=== PATIENT | female | born 1935 | race Caucasian/White ===

== ENCOUNTER 2017-03-19 03:12 | Inpatient (IN) | payer MEDICARE ==
[2017-03-19] VITALS (41 sets, daily range): BP systolic 70–162; BP diastolic 29–87
[~2017-03-19] VITALS: Ht 167.6 cm; Wt 97.3 kg
[~2017-03-19 03:12] MED LIST: ACDPT PO; APIX5TAB2 PO; ASP81CT PO; ASP81TEC PO; ATR20T PO; ATRV10T PO; CALC-656 PO; CALC1TAB94 PO; CLOP75TA PO; DRON400T2 PO; FENO135C PO; FLC1T PO; FNT25TD TD; LEVE500T PO; LEVO750T24 PO; LVT.05T PO; MAGN400T29 PO; METO-272 PO; METO100T5 PO; METO25TA PO; METO50TA7 PO; MTP25TSR PO; Magnesium Oxide PO; NAPR1TAB21 PO; NF-LOVAZAC PO; OMEG1CAP24 PO; OXYB10TA PO; PNT40TEC PO; SOLI5TAB4 PO; Sertraline Hcl PO; Sotalol Hcl PO; WARF6TAB PO; WRF10T PO; WRF3T PO
[2017-03-19] MEDS ORDERED: D5W IV SOLUTION (EXCEL) 250 ML IV ONE ×2 (04:32→05:04)
[2017-03-19] MEDS ORDERED: NOREPINEPHRINE 4 MG/4 ML (LEVOPHED) AMP IV ONE ×2 (04:33→05:04)
--- OUTSIDE RECORDS SUMMARY | 2017-03-19 04:40 | XMS REPORT | Continuity of Care Document ---
Author Author [facility] Organization [facility] Address Unknown Phone Unavailable Allergies Active Description Code Type Severity Reaction Onset Reported/Identified Relationship to Patient Clinical Status Yes bupropion [id number] Drug Allergy Unknown N/A 05/20/2011 Yes codeine [id number] Drug Allergy Unknown N/A 05/20/2011 Yes epinephrine [id number] Drug Allergy Unknown N/A 05/20/2011 Yes fexofenadine [id number] Drug Allergy Unknown N/A 05/20/2011 Yes gemfibrozil [id number] Drug Allergy Unknown N/A 05/20/2011 Yes meperidine HCl [id number] Drug Allergy Unknown N/A 05/20/2011 Yes niacin [id number] Drug Allergy Unknown N/A 05/20/2011 Yes ondansetron [id number] Drug Allergy Unknown N/A 05/20/2011 Yes Penicillins [id number] Drug Allergy Unknown N/A 05/20/2011 Yes propoxyphene [id number] Drug Allergy Unknown N/A 05/20/2011 Yes propoxyphene napsylate [id number] Drug Allergy Unknown N/A 05/20/2011 Yes tetracycline [id number] Drug Allergy Unknown N/A 05/20/2011 Medications There is no data. Problems Date Dx Coded Attending Type Code Diagnosis Diagnosed By 06/08/2012 Ot 272.4 HYPERLIPIDEMIA NEC/NOS 06/08/2012 Ot 305.1 TOBACCO USE DISORDER 06/08/2012 Ot 401.9 HYPERTENSION NOS 06/08/2012 Ot 414.01 CORONARY ATHEROSCLEROSIS OF LUMMI CORON 06/08/2012 Ot 427.31 ATRIAL FIBRILLATION 06/08/2012 Ot 427.81 SINOATRIAL NODE DYSFUNCT 06/08/2012 Ot 433.10 CAROTID ARTERY OCCLUSION W O CEREBRAL IN 06/08/2012 Ot 794.30 ABN CARDIOVASC STUDY NOS 06/08/2012 Ot V45.01 CARDIAC PACEMAKER IN SITU 06/08/2012 Ot V58.61 ANTICOAGULANTS,LT,CURRENT USE 06/08/2012 Ot V58.69 OTH MED,LT, CURRENT USE 06/20/2012 Ot 272.4 HYPERLIPIDEMIA NEC/NOS 06/20/2012 Ot 401.9 HYPERTENSION NOS 06/20/2012 Ot 427.31 ATRIAL FIBRILLATION 06/20/2012 Ot 427.81 SINOATRIAL NODE DYSFUNCT 06/20/2012 Ot 440.20 ATHEROSCLEROSIS LUMMI ARTERIES EXTREMIT 06/20/2012 Ot 996.1 MALFUNC VASC DEVICE/MANUEL 06/20/2012 Ot V45.01 CARDIAC PACEMAKER IN SITU 07/12/2012 Ot 244.9 HYPOTHYROIDISM NOS 07/12/2012 Ot 272.4 HYPERLIPIDEMIA NEC/NOS 07/12/2012 Ot 285.9 ANEMIA NOS 07/12/2012 Ot 305.1 TOBACCO USE DISORDER 07/12/2012 Ot 401.9 HYPERTENSION NOS 07/12/2012 Ot 414.01 CORONARY ATHEROSCLEROSIS OF LUMMI CORON 07/12/2012 Ot 440.20 ATHEROSCLEROSIS LUMMI ARTERIES EXTREMIT 07/12/2012 Ot 998.59 OTH POSTOPER INFECTION 07/12/2012 Ot 998.83 NON-HEALING SURG WOUND 07/12/2012 Ot E849.7 ACCID IN RESIDENT INSTIT 07/12/2012 Ot E878.8 ABN REACT- SURG PROC NEC 07/12/2012 Ot V45.01 CARDIAC PACEMAKER IN SITU 07/12/2012 Ot V58.61 ANTICOAGULANTS,LT,CURRENT USE 02/19/2014 SARIKA CHERY, GHISLAINE E Ot 298.9 02/19/2014 SARIKA CHERY, GHISLAINE E Ot 530.81 02/19/2014 SARIKA CHERY, GHISLAINE E Ot 553.3 02/19/2014 SARIKA CHERY, GHISLAINE E Ot 780.79 02/19/2014 SARIKA CHERY, GHISLAINE E Ot V45.01 02/19/2014 GHISLAINE BAUM MD E Ot V45.82 02/19/2014 SARIKA CHERY, GHISLAINE E Ot V57.89 02/23/2014 SARIKA CHERY, GHISLAINE E Ot 244.9 02/23/2014 GHISLAINE BAUM MD E Ot 272.4 02/23/2014 GHISLAINE BAUM MD E Ot 293.9 02/23/2014 SARIKA CHERY, GHISLAINE E Ot 374.30 02/23/2014 SARIKA CHERY, GHISLAINE E Ot 378.51 02/23/2014 SHELLY BAUM MDIC E Ot 401.9 02/23/2014 SARIKA CHERY, GHISLAINE E Ot 414.01 02/23/2014 SARIKA CHERY, GHISLAINE E Ot 427.31 02/23/2014 SARIKA CHERY, GHISLAINE E Ot 438.89 02/23/2014 SARIKA CHERY, GHISLAINE E Ot 443.9 02/23/2014 SARIKA CHERY, GHISLAINE E Ot 530.81 02/23/2014 SARIKA CHERY, GHISLAINE E Ot 553.3 02/23/2014 SARIKA CHERY, GHISLAINE E Ot 780.79 02/23/2014 SARIKA CHERY, GHISLAINE E Ot V12.51 02/23/2014 SARIKA CHERY, GHISLAINE E Ot V15.82 02/23/2014 SARIKA CHERY, GHISLAINE E Ot V45.01 02/23/2014 SARIKA CHERY, GHISLAINE E Ot V45.82 02/23/2014 SARIKA CHERY, GHISLAINE E Ot V57.89 03/02/2014 SARIKA CHERY, GHISLAINE E Ot 244.9 03/02/2014 SARIKA CHERY, GHISLAINE E Ot 272.4 03/02/2014 SARIKA CHERY, GHISLAINE E Ot 293.9 03/02/2014 SARIKA CHERY, GHISLAINE E Ot 374.30 03/02/2014 SARIKA CHERY, GHISLAINE E Ot 378.51 03/02/2014 SARIKA CHERY, GHISLAINE E Ot 401.9 03/02/2014 SARIKA CHERY, GHISLAINE E Ot 414.01 03/02/2014 SARIKA CHERY, GHISLAINE E Ot 427.31 03/02/2014 SARIKA CHERY, GHISLAINE E Ot 438.89 03/02/2014 SARIKA CHERY, GHISLAINE E Ot 443.9 03/02/2014 SARIKA CHERY, GHISLAINE E Ot 530.81 03/02/2014 SARIKA CHERY, GHISLAINE E Ot 553.3 03/02/2014 SARIKA CHERY, GHISLAINE E Ot 780.79 03/02/2014 SARIKA CHERY, GHISLAINE E Ot V12.51 03/02/2014 SARIKA CHERY, GHISLAINE E Ot V15.82 03/02/2014 SARIKA CHERY, GHISLAINE E Ot V45.01 03/02/2014 SARIKA CHERY, GHISLAINE E Ot V45.82 03/02/2014 SARIKA CHERY, GHISLAINE E Ot V57.89 03/03/2014 SARIKA CHERY, GHISLAINE E Ot 244.9 03/03/2014 SARIKA CHERY, GHISLAINE E Ot 272.4 03/03/2014 BAUM MD, GHISLAINE E Ot 293.9 03/03/2014 SARIKA CHERY GHISLAINE E Ot 374.30 03/03/2014 SARIKA CHERY GHISLAINE E Ot 378.51 03/03/2014 SARIKA CHERY GHISLAINE E Ot 401.9 03/03/2014 SARIKA CHERY GHISLAINE E Ot 414.01 03/03/2014 SARIKA CHERY GHISLAINE E Ot 427.31 03/03/2014 SARIKA CHERY GHISLAINE E Ot 438.89 03/03/2014 SARIKA CHERY GHISLAINE E Ot 443.9 03/03/2014 SARIKA CHERY GHISLAINE E Ot 530.81 03/03/2014 SARIKA CHERY GHISLAINE E Ot 553.3 03/03/2014 SARIKA CHERY GHISLAINE E Ot 780.79 03/03/2014 SARIKA CHERY GHISLAINE E Ot V12.51 03/03/2014 SARIKA CHERY GHISLAINE E Ot V15.82 03/03/2014 SARIKA CHERY GHISLAINE E Ot V45.01 03/03/2014 SARIKA CHERY GHISLAINE E Ot V45.82 03/03/2014 SARIKA CHERY GHISLAINE E Ot V57.89 03/08/2014 SARIKA CHERY GHISLAINE E Ot 244.9 HYPOTHYROIDISM NOS 03/08/2014 SARIKA CHERY GHISLAINE E Ot 272.4 HYPERLIPIDEMIA NEC/NOS 03/08/2014 SARIKA CHERY GHISLAINE E Ot 276.1 HYPOSMOLALITY 03/08/2014 SARIKA CHERY GHISLAINE E Ot 285.9 ANEMIA NOS 03/08/2014 SARIKA CHERY GHISLAINE E Ot 293.9 UNSPEC TRANSIENT MENTAL DIS IN COND CLAS 03/08/2014 SARIKA CHERY GHISLAINE E Ot 311 DEPRESSIVE DISORDER NEC 03/08/2014 SARIKA CHERY GHISLAINE E Ot 327.23 OBSTRUCTIVE SLEEP APNEA (ADULT) (PEDIATR 03/08/2014 SARIKA CHERY GHISLAINE E Ot 374.30 PTOSIS OF EYELID NOS 03/08/2014 SARIKA CHERY GHISLAINE E Ot 378.51 PARTIAL THIRD NERV PALSY 03/08/2014 SARIKA CHERY GHISLAINE E Ot 401.9 HYPERTENSION NOS 03/08/2014 SARIKA CHERY GHISLAINE E Ot 414.01 CORONARY ATHEROSCLEROSIS OF LUMMI CORON 03/08/2014 SARIKA CHERY GHISLAINE E Ot 427.31 ATRIAL FIBRILLATION 03/08/2014 SARIKA CHERY GHISLAINE E Ot 438.89 OTH LATE EFFECT-CEREBROVASCULAR DISEASE 03/08/2014 GHISLAINE BAUM MD Ot 443.9 PERIPH VASCULAR DIS NOS 03/08/2014 GHISLAINE BAUM MD Ot 530.81 ESOPHAGEAL REFLUX 03/08/2014 GHISLAINE BAUM MD Ot 553.3 DIAPHRAGMATIC HERNIA 03/08/2014 GHISLAINE BAUM MD Ot 780.79 OTH MALAISE FATIGUE 03/08/2014 GHISLAINE BAUM MD Ot 781.2 ABNORMALITY OF GAIT 03/08/2014 GHISLAINE BAUM MD Ot V12.51 HX-VENOUS THROMBOSIS EMBOLISM 03/08/2014 GHISLAINE BAUM MD Ot V15.82 HISTORY OF TOBACCO USE 03/08/2014 GHISLAINE BAUM MD Ot V45.01 CARDIAC PACEMAKER IN SITU 03/08/2014 GHISLAINE BAUM MD Ot V45.82 PERCUTANEOUS TRANSLUM CORON ANGIOPLASTY 03/08/2014 GHISLAINE BAUM MD Ot V57.89 REHABILITATION PROC [facility] 05/15/2014 ABEL LEONARDO DO Ot 327.23 OBSTRUCTIVE SLEEP APNEA (ADULT) (PEDIATR 05/15/2014 ABEL LEONARDO DO Ot 327.51 PERIODIC LIMB MOVEMENT DISORDER 05/15/2014 ABEL LEONARDO DO Ot 401.9 HYPERTENSION NOS 05/15/2014 ABEL LEONARDO DO Ot 278.00 05/15/2014 ABEL LEONARDO DO Ot 427.31 05/15/2014 ABEL LEONARDO DO Ot 786.09 05/24/2014 ABEL LEONARDO DO Ot 278.00 05/24/2014 ABEL LEONARDO DO Ot 427.31 05/24/2014 ABEL LEONARDO DO Ot 786.09 02/26/2015 NIKA DAILY APRN Ot G47.33 OBSTRUCTIVE SLEEP APNEA (ADULT) (PEDIATR 02/26/2015 NIKA DAILY APRN Ot G47.61 PERIODIC LIMB MOVEMENT DISORDER 02/26/2015 NIKA DAILY APRN Ot I10 ESSENTIAL (PRIMARY) HYPERTENSION 03/19/2017 Ot 401.9 HYPERTENSION NOS 03/19/2017 Ot 427.31 ATRIAL FIBRILLATION 03/19/2017 Ot 427.81 SINOATRIAL NODE DYSFUNCT 03/19/2017 Ot 998.89 OTHER SPEC COMPLICATIONS OF PROCEDURES N 03/19/2017 ABEL LEONARDO DO Ot 278.00 OBESITY, NOS 03/19/2017 ABEL LEONARDO DO Ot 427.31 ATRIAL FIBRILLATION 03/19/2017 ABEL LEONARDO DO Ot 786.09 RESPIRATORY ABNORM NEC Procedures Code Description Performed By Performed On 00.40 PROCEDURE ON SINGLE VESSEL 06/16/2012 38.18 LOWER LIMB ENDARTERECT 06/16/2012 88.48 CONTRAST ARTERIOGRAM-LEG 06/16/2012 Results There is no data. Encounters ACCT No. Visit Date/Time Discharge Status Pt. Type Provider Facility Loc./Unit Complaint [id number] 02/25/2015 19:47:00 02/26/2015 06:30:00 DIS Outpatient NIKA DAILY APRN [facility] SLEEP MALLY [id number] 05/14/2014 21:00:00 05/15/2014 06:50:00 DIS Outpatient ABEL LEONARDO DO [facility] SLEEP MALLY,SNORING,HTN, [id number] 04/25/2014 12:35:00 04/25/2014 23:59:59 CLS Outpatient ABEL LEONARDO DO [facility] RT PAF,SNORING [id number] 02/16/2014 10:10:00 03/08/2014 15:30:00 DIS Inpatient GHISLAINE BAUM MD [facility] IRF IRF-WEAKNESS [id number] 03/19/2017 04:34:00 ACT Inpatient JUNIOR CALDERON DO [facility] ICU RESPIRATORY FAILURE,CHF [id number] 07/08/2012 13:17:00 Document Registration [id number] 06/27/2012 15:40:00 Document Registration [id number] 06/16/2012 13:03:00 Document Registration [id number] 06/08/2012 10:11:00 Document Registration [id number] 05/24/2012 11:08:00 Document Registration
[2017-03-19] MEDS ORDERED: PIPERACILLIN SODIUM/TAZOBACTAM 4.5 GM in NS (IVPB) 100 ML IV ONE (05:00)
[2017-03-19] MEDS ORDERED: fentaNYL INJECTION 100 MCG/2 ML AMP ONE (05:05)
[2017-03-19] MEDS ORDERED: PROPOFOL DRIP (ICU) 100 ML IV ONE (05:05)
[2017-03-19] MEDS ORDERED: PIPERACILLIN/TAZO 4.5 GM VIAL (ZOSYN) IV ONE (05:12)
[2017-03-19] MEDS ORDERED: NS (IVPB) 100 ML ONE (05:13)
[2017-03-19 05:19] LABS: ABG BASE EXCESS 1.4 MMOL/L (-2.5-2.5); ABG HCO3 27 MMOL/L (23-27); ABG OXYGEN SATURATION 98 % (94-100); ABG PCO2 58 MMHG (35-45); ABG PO2 112 MMHG (79-93); ABG TCO2 29.2 MMOL/L (21.0-31.0)
[2017-03-19 05:21] LABS: ABG PH 7.29 (7.37-7.43); ALLENS TEST YES-POS; PATIENT TEMP 98.2
[2017-03-19 05:21] LABS: BASOPHILS % (AUTO) 1 % (0-10); EOSINOPHILS % (AUTO) 0 % (0-10); LYMPHOCYTES # (AUTO) 1.2 X 10^3 (1.0-4.0); LYMPHOCYTES % (AUTO) 13 % (12-44); MEAN CORPUSCULAR HEMOGLOBIN 29 PG (25-34); MEAN CORPUSCULAR HGB CONC 32 G/DL (32-36); MEAN CORPUSCULAR VOLUME 92 FL (80-99); MEAN PLATELET VOLUME 10.4 FL (7.4-10.4); MONOCYTES # (AUTO) 0.7 X 10^3 (0.0-1.0); MONOCYTES % (AUTO) 8 % (0-12); NEUTROPHILS # (AUTO) 6.9 X 10^3 (1.8-7.8); NEUTROPHILS % (AUTO) 78 % (42-75); PLATELET COUNT 189 10^3/uL (130-400); RED BLOOD COUNT 4.02 10^6/uL (4.35-5.85); RED CELL DISTRIBUTION WIDTH 13.9 % (10.0-14.5); WHITE BLOOD COUNT 8.9 10^3/uL (4.3-11.0)
[2017-03-19] MEDS ORDERED: VANCOMYCIN INJECTION 1,000 MG in NS (IVPB) 250 ML IV ONE (05:30)
[2017-03-19] MEDS ORDERED: fentaNYL INJECTION 100 MCG/2 ML AMP IVP PRN (05:30)
[2017-03-19] MEDS ORDERED: NOREPINEPHRINE 4 MG in D5W IV SOLUTION (EXCEL) 250 ML IV SCH (05:30)
[2017-03-19] MEDS ORDERED: VANCOMYCIN 1000 MG/VIAL ONE (05:31)
[2017-03-19] MEDS ORDERED: NS (IVPB) 250 ML ONE (05:31)
[2017-03-19 05:35] LABS: ALBUMIN 3.5 GM/DL (3.2-4.5); CALCIUM 8.3 MG/DL (8.5-10.1); CREATININE SERUM 1.06 MG/DL (0.60-1.30); MAGNESIUM 1.3 MG/DL (1.8-2.4); PHOSPHORUS 4.5 MG/DL (2.3-4.7); POTASSIUM 3.4 MMOL/L (3.6-5.0)
--- NOTE | 2017-03-19 05:38 | Pulmonary Consultation ---
History of Present Illness History of Present Illness Date of Consultation 03/19/17 05:32 Time Seen by Provider: 05:33 Date of Admission History of Present Illness 81yo with hx of subarachnoid hemorrhage presented as direct admit from [facility] secondary to acute respiratory failure and change in MS. Pt was found unresponsive at [facility]. She was intubated at [facility] and transferred here. She was diagnosed with sepsis at [facility] labs here show no leukocytosis, and normal LA. CT of head has not yet been done. PT is currenetly hypotensive on Levophed gtt however according to RN pt was hypertensive prior to intubation. All information obtained from chart and RN. I am consulted for ICU management. Allergies and Home Medications Allergies Coded Allergies: Codeine (Verified Allergy, Unknown, 05/20/11) Gemfibrozil (Unverified Allergy, Unknown, 05/20/11) Penicillins (Verified Allergy, Unknown, 05/20/11) Tetracycline (Verified Allergy, Unknown, 05/20/11) bupropion (Verified Allergy, Unknown, 05/20/11) epinephrine (Unverified Allergy, Unknown, 05/20/11) fexofenadine (Unverified Allergy, Unknown, 05/20/11) meperidine HCl (Unverified Allergy, Unknown, 05/20/11) niacin (Verified Allergy, Unknown, 05/20/11) ondansetron (Unverified Allergy, Unknown, 05/20/11) propoxyphene (Verified Allergy, Unknown, 05/20/11) propoxyphene napsylate (Unverified Allergy, Unknown, 05/20/11) Home Medications Acetaminophen/Diphenhydramine 1 Ea Tab, 1 TAB PO HS, (Reported) Apixaban 5 Mg Tablet, 5 MG PO BID, #60 Prescribed by: GHISLAINE BAUM on 03/08/14 1042 Atorvastatin 20 Mg Tablet, 20 MG PO HS, (Reported) Calcium Carbonate/Vitamin D3 1 Each Tablet, 2 TAB PO DAILY, (Reported) Levetiracetam 500 Mg Tab, 500 MG PO DAILY, #30 Prescribed by: GHISLAINE BAUM on 03/08/14 1042 Levothyroxine Sodium 50 Mcg Tablet, 50 MCG PO DAILY, (Reported) Aurora-3 Fatty Acids/Fish Oil 1 Each Capsule.dr, 3 TAB PO DAILY, (Reported) Pantoprazole Sod 40 Mg Tab, 40 MG PO DAILY@0700, #30 Prescribed by: GHISLAINE BAUM on 03/08/14 1042 [Magnesium Oxide] 400 MG TAB, 100 MG PO DAILY@0800, #30 Prescribed by: GHISLAINE BAUM on 03/08/14 1042 [Sertraline Hcl] 50 MG TABLET, 50 MG PO HS, #30 Prescribed by: GHISLAINE BAUM on 03/08/14 1042 [Sotalol Hcl] 80 MG TAB, 80 MG PO BID, #60 Prescribed by: GHISLAINE BAUM on 03/08/14 1042 Past Qptqvts-Itiddb-Xbpwyr Hx Patient Social History Recent Foreign Travel: No Contact w/Someone Who Travel: No Immunizations Up To Date Date of Influenza Vaccine: Jan 06, 2000 Seasonal Allergies Seasonal Allergies: No Respiratory Respiratory Disorders: Pneumonia Reproductive System Hx Reproductive Disorders: No Genitourinary Genitourinary Disorders: Kidney Stones Gastrointestinal Gastrointestinal Disorders: Gastroesophageal Reflux, Hiatal Hernia, Gall Bladder Disease Musculoskeletal Musculoskeletal Disorders: Arthritis HEENT HEENT Disorders: Cataract Blood Transfusions Adverse Reaction to a Blood Tr: No Review of Systems Time Seen by Provider: 06:03 Exam Exam Vital Signs Date Time Temp Pulse Resp B/P (MAP) Pulse Ox O2 Delivery O2 Flow Rate FiO2 03/19/17 05:14 60 General Appearance: No Apparent Distress, WD/WN HEENT: PERRL/EOMI Neck: Full Range of Motion Respiratory: No Accessory Muscle Use, No Respiratory Distress, Decreased Breath Sounds, Respiratory Distress (pt is sedated on the vent ) Cardiovascular: Regular Rate, Rhythm, No Edema, No Gallop Gastrointestinal: normal bowel sounds, non tender, soft Skin: Normal Color, Warm/Dry Lymphatic: No Adenopathy Results Lab Laboratory Tests 03/19/17 05:00 Assessment/Plan Assessment/Plan Acute respiratory failure -Intubated and transferred here from [facility] after being found unresponsive at nursing -Continue ventilatory support -Check CTA of chest and head -repeat ABG after pt has been on vent here for 1hr . Elevated troponin -Check EKG, echo -consult cardiology S/p subarachnoid hemorrhage 01/06/14 (clipping of aneurysm at [facility]) -Will check stat CT of head Hypotension - probably secondary to sedation and intubation -Give 2 liters of IVF bolus then 150cc/hr -Wean Levophed to D/C Electrolyte abnormality -replace Obesity with hx of MALLY 255 ABEL LEONARDO DO Mar 19, 2017 05:37
[2017-03-19] MEDS: NS IV 1000 ML 1,000 ML IV SCH ×6 (05:43→22:46)
[2017-03-19 05:51] LABS: INR 1.1 (0.8-1.4); PROTHROMBIN TIME PATIENT 14.3 SEC (12.2-14.7)
[2017-03-19 05:54] LABS: TROPONIN I 2.2 NG/ML (<0.30)
[2017-03-19] MEDS ORDERED: CHLORHEXIDINE 0.12% SOLN 15 ML (PERIDEX) UDC PO SCH (06:00)
[2017-03-19 06:06] LABS: BILIRUBIN,URINE NEGATIVE (NEGATIVE); KETONES,URINE NEGATIVE (NEGATIVE); LEUKOCYTE ESTERASE ,URINE NEGATIVE (NEGATIVE); NITRITE,URINE NEGATIVE (NEGATIVE); PH,URINE 5 (5-9); PROTEIN,URINE 2+ (NEGATIVE); UROBILINOGEN,URINE NORMAL (NORMAL)
[2017-03-19 06:18] LABS: HYALINE CASTS, URINE 25-50 /LPF
--- NOTE | 2017-03-19 06:20 | Diagnostic Imaging Report ---
INDICATION: Respiratory failure. PA and lateral chest. FINDINGS: There is an ET tube projecting over the trachea. NG tube enters the stomach. There is a dual-chamber pacemaker. Heart size and pulmonary vascularity are normal. Lungs are clear. IMPRESSION: No acute abnormalities in the chest. Dictated by: Dictated on workstation # [id number]
--- NOTE | 2017-03-19 06:47 | Diagnostic Imaging Report ---
PROCEDURE: CT head without contrast. TECHNIQUE: Multiple contiguous axial images were obtained through the brain without the use of intravenous contrast. INDICATION: Patient found unresponsive There are no prior CTs available for comparison. There are postop changes from aneurysm clipping of the base of the skull on the right with craniotomy changes from a temporal craniotomy. There is some decreased density in the periventricular white matter of both cerebral hemispheres. There some decreased density in the tip of the right temporal lobe consistent with old ischemic injury and there is corresponding enlargement of the temporal horn of the right lateral ventricle. There are no hemorrhages or extra-axial fluid collections. IMPRESSION: Chronic ischemic leukoencephalopathy. Old ischemic injury right temporal lobe. Postop changes from craniotomy and aneurysm clipping at the base of the skull. No acute abnormality seen. Dictated by: Dictated on workstation # [id number]
[2017-03-19] MEDS ORDERED: VANCOMYCIN INJECTION 2,000 MG in NS IV 500 ML 500 ML IV NR (07:12)
[2017-03-19] MEDS ORDERED: VANCOMYCIN 1 GM/NS 250 ML IVPB IV NR ×2 (07:16)
--- NOTE | 2017-03-19 07:37 | Diagnostic Imaging Report ---
PROCEDURE: CT angiography of the chest with contrast. TECHNIQUE: Multiple contiguous axial images were obtained through the chest after uneventful bolus administration of intravenous contrast. Reconstructed CTA MIP acquisitions were also performed. INDICATION: Respiratory failure There is some atelectasis in the dependent portions of the upper lobes and lower lobes. There is calcified granuloma in the superior segment of the right lower lobe. There is calcific atherosclerosis of the aorta. There is no aneurysm or dissection. There are no pulmonary emboli. ET and NG tubes project over appropriate structures. IMPRESSION: Dependent atelectasis in the lungs. No pulmonary emboli or acute aortic pathology seen. Dictated by: Dictated on workstation # [id number]
--- NOTE | 2017-03-19 07:40 | Diagnostic Imaging Report ---
PROCEDURE: CT head with contrast. TECHNIQUE: Multiple contiguous axial images were obtained through the brain after the administration of intravenous contrast. INDICATION: Altered mental status. FINDINGS: There is extensive periventricular and deep white matter hyperdensities suggestive of chronic microvascular ischemic changes. There is a 7 mm focus of enhancement seen adjacent to a calcification noted in the left frontal region just above the level of the ventricle. No significant surrounding edema or mass effect is identified. No other lesion is seen. This is indeterminate and no prior enhanced CT scans of the head are available to compare. There is no hydrocephalus. No extra-axial fluid collection is seen. There are postsurgical changes and clipping with associated artifact seen from the metallic clips adjacent to the right MCA artery expected course. The calvarium demonstrates right frontal craniotomy changes. Minimal mucosal thickening in the ethmoidal air cells are seen. ET tube and an oropharyngeal tube are noted. IMPRESSION: Subtle focal enhancement measuring 7 mm is seen in the left frontal lobe with no significant mass effect around it. This is of uncertain etiology, with early mass versus vascular anomaly included in the differential diagnosis. Followup exams and MRI can be helpful. Dictated by: Dictated on workstation # [id number]
[2017-03-19] MEDS ORDERED: IOHEXOL 350 MG/ML 150 ML (OMNIPAQUE 350) VIAL IV ONE (07:45)
[2017-03-19] MEDS ORDERED: NS 100 ML (IVPB) BAG IV ONE (07:45)
[2017-03-19] MEDS: POTASSIUM CL 10MEQ/50ML IVPB 50 ML IV SCH ×5 (07:58→10:46)
[2017-03-19] MEDS: MAGNESIUM 1 GM/100 ML IVPB 100 ML IV SCH ×2 (07:59→08:00)
[2017-03-19] MEDS: PANTOPRAZOLE 40 MG/10 ML (PROTONIX) VIAL IV SCH ×2 (07:59→17:20)
[2017-03-19] MEDS: CHLORHEXIDINE 0.12% SOLN 15 ML (PERIDEX) UDC PO SCH ×2 (08:00→22:44)
[2017-03-19] MEDS ORDERED: inSUlin (REGULAR) HUMAN 1 UNIT/0.01 ML (CHARGE PER UNIT) SC SCH (08:00)
[2017-03-19] MEDS: inSUlin ASPART (NovoLOG) 1 UNIT/0.01 ML (CHARGE PER UNIT) SC SCH ×5 (08:13→23:37)
[2017-03-19] MEDS ORDERED: LEVO50TA6 PO (09:20)
[2017-03-19] MEDS ORDERED: MAGN400T6 PO (09:20)
[2017-03-19] MEDS ORDERED: HYDR453.3 TOP (09:20)
[2017-03-19] MEDS ORDERED: ALPR0.254 PO (09:20)
[2017-03-19] MEDS ORDERED: ATOR40TA70 PO (09:20)
[2017-03-19] MEDS ORDERED: OMG1KC PO (09:20)
[2017-03-19] MEDS ORDERED: SERT50TA9 PO (09:20)
[2017-03-19] MEDS ORDERED: SOTA80TA PO (09:20)
[2017-03-19] MEDS ORDERED: APIX5TAB PO (09:20)
[2017-03-19] MEDS ORDERED: PANT40TA2 PO (09:20)
[2017-03-19] MEDS ORDERED: CALC-783 PO (09:20)
[2017-03-19] MEDS ORDERED: LIDOCAINE 1% INJ 50 ML (XYLOCAINE) VIAL ONE (09:34)
[2017-03-19] MEDS ORDERED: HEParin (CATH LAB) 0 ML IV ONE (09:35)
[2017-03-19] MEDS: RT-ALBUTEROL/IPRATROPIUM 3 ML (DUONEB) VIAL INH SCH ×4 (09:43→21:58)
--- NOTE | 2017-03-19 11:52 | History & Physical-Hospitalist ---
HPI History of Present Illness: HPI/Chief Complaint CC: Respiratory failure HPI: This is a 81 yoWF that transferred from [facility] at 0300 after traveling there by EMS due to SOB. Found to have bilateral infiltrate on CXR requiring intubation. Dr. Vincent was consulted. Pt is on pressor therapy from hypotension and for sepsis. Maintain aggressive supportive care. track maintainer: CTA negative Echo done this am Cardiology is on board Patient Interview: Pt was not alert upon interview. The following interview was conducted with present family: Family confirms that Dr. Garza sent the pt over here Pneumonia and treatment was discussed with family, the family was informed that the pneumonia has stressed her heart Family was informed that the pt is stable but critically ill. Dr. Villalobos confirmed as PCP Family asked if pt was septic and I confirmed this. Family was assured that they did not do anything wrong when taking care of her and these symptoms can occur rapidly Physical exam stable. Family states she is DNR. Family unsure if what the pt has is a living will but they were assured that the pt is not at that point yet. I informed the family that pt will stay over weekend and remain intubated Abx, fluids, and BP meds discussed Scribed by Padmini Wade under direct supervision of Dr. Viji Calderon. Source: patient Exam Limitations: clinical condition (intubated) Date Seen 03/19/17 Time Seen by Provider: 11:00 Attending Physician Viji Calderon DO PCP Adonay Villalobos DO Referring Physician Date of Admission Mar 19, 2017 at 04:34 Home Medications & Allergies Home Medications Reviewed patient Home Medication Reconciliation Form Allergies Allergies Coded Allergies Codeine (Verified Allergy, Unknown, 05/20/11) Gemfibrozil (Unverified Allergy, Unknown, 05/20/11) Penicillins (Verified Allergy, Unknown, 05/20/11) Tetracycline (Verified Allergy, Unknown, 05/20/11) bupropion (Verified Allergy, Unknown, 05/20/11) epinephrine (Unverified Allergy, Unknown, 05/20/11) fexofenadine (Unverified Allergy, Unknown, 05/20/11) meperidine HCl (Unverified Allergy, Unknown, 05/20/11) niacin (Verified Allergy, Unknown, 05/20/11) ondansetron (Unverified Allergy, Unknown, 05/20/11) propoxyphene (Verified Allergy, Unknown, 05/20/11) propoxyphene napsylate (Unverified Allergy, Unknown, 05/20/11) Past Mqlzlae-Hpwhyz-Yxohtk Hx Patient Social History Marrital Status: Employed/Student: retired Alcohol Use: Denies Use Recreational Drug Use: No Smoking Status: Unknown if Ever Smoked Physical Abuse Screen: No Sexual Abuse: No Recent Foreign Travel: No Contact w/other who traveled: No Recent Infectious Disease Expo: No Immunizations Up To Date Date of Pneumonia Vaccine: Mar 19, 2015 Date of Influenza Vaccine: Jan 05, 2017 Seasonal Allergies Seasonal Allergies: No Surgeries Yes (CAROTID/HERNIA REP/UTERINE SLING/ANEURYSM CLIPPING) Respiratory Yes COPD Cardiovascular Yes (PACEMAKER- CAROTID STENT) High Cholesterol, Hypertension, Peripheral Vascular Neurological Yes (Snell's Palsy) Reproductive System Hx Reproductive Disorders: No Genitourinary Yes Kidney Stones Gastrointestinal Yes Gastroesophageal Reflux, Hiatal Hernia, Gall Bladder Disease Musculoskeletal Yes Arthritis Endocrine History of Endocrine Disorders: Yes (THYROID UNSURE OF HYPER OR HYPO) HEENT HEENT Disorders: Cataract Cancer No Psychosocial History of Psychiatric Problem: No Integumentary History of Skin or Integumenta: No Blood Transfusions History of Blood Disorders: No Adverse Reaction to a Blood Tr: No Review of Systems ROS-Unable to Obtain: Unobtainable Constitutional: see HPI Physical Exam Physical Exam Vital Signs Vital Sign - Last 12Hours 03/19/17 03/19/17 03/19/17 03/19/17 04:00 04:30 05:00 08:00 Temp 97.9 Pulse 60 Resp 14 B/P (MAP) 83/40 (54) Pulse Ox 99 O2 Delivery Mechanical Ventilator O2 Flow Rate 50.00 FiO2 70 Capillary Refill : Less Than 3 Seconds General Appearance: No Apparent Distress, WD/WN, Chronically ill, Obese Eyes: Bilateral Eye Normal Inspection, Bilateral Eye PERRL HEENT: Other (ETT in place) Neck: Normal Inspection, Non Tender, Supple Respiratory: Chest Non Tender, No Accessory Muscle Use, No Respiratory Distress , Crackles, Decreased Breath Sounds Cardiovascular: Regular Rate, Rhythm, No Edema, No Gallop, No JVD, No Murmur, Normal Peripheral Pulses Gastrointestinal: Normal Bowel Sounds, No Organomegaly, No Pulsatile Mass Extremity: Normal Capillary Refill, Normal Inspection, Normal Range of Motion, Non Tender, No Calf Tenderness, No Pedal Edema Skin: Normal Color, Warm/Dry Lymphatic: No Adenopathy Results Results/Procedures Lab Laboratory Tests 03/19/17 05:00 Assessment/Plan Admission Diagnosis Assessment: Acute respiratory failure requiring intubation at [facility] at 0300 this am Bilateral pneumonia Elevated troponin with elevated BNP consulting Cardiology COPD AF Assessment and Plan Plan: Intubation and I appreciate Dr Vincent's help today and this weekend Living Will assessment in case unable to extubate Aggressive care to continue Clinical Quality Measures DVT/VTE Risk/Contraindication: Risk Factor Score Per Nursin RFS Level Per Nursing on Admit: 4+=Very High VIJI CALDERON DO Mar 19, 2017 11:52
[2017-03-19] MEDS ORDERED: PIPERACILLIN SODIUM/TAZOBACTAM 4.5 GM in NS (IVPB) 100 ML IV SCH (13:00)
--- NOTE | 2017-03-19 13:47 | Consultation-Cardiology ---
HPI-Cardiology Cardiology Consultation Date of Consultation 03/19/17 Date of Admission Time Seen by Provider: 13:37 Indication: CAD HPI 81 years old lady who is intubated, respiratory failure, unable to provide any history, I visited with the daughter who reported that she has been having increasing dyspnea, refusing to use oxygen, continue to deteriorate over the past 4-5 days to the point that she was found on the floor, reportedly rolled out of her bed, unresponsive, was intubated and transferred from [facility]. She was hypotensive receiving pressors. Unresponsive. Discussed with the daughter the management plan, she had elevated troponin and the possibility of doing cardiac catheterization, the daughter is very hesitant to do any procedure at this time. Still want aggressive measures without any procedure. Home Medications & Allergies Allergies: Coded Allergies: Codeine (Verified Allergy, Unknown, 05/20/11) Gemfibrozil (Unverified Allergy, Unknown, 05/20/11) Penicillins (Verified Allergy, Unknown, 05/20/11) Tetracycline (Verified Allergy, Unknown, 05/20/11) bupropion (Verified Allergy, Unknown, 05/20/11) epinephrine (Unverified Allergy, Unknown, 05/20/11) fexofenadine (Unverified Allergy, Unknown, 05/20/11) meperidine HCl (Unverified Allergy, Unknown, 05/20/11) niacin (Verified Allergy, Unknown, 05/20/11) ondansetron (Unverified Allergy, Unknown, 05/20/11) propoxyphene (Verified Allergy, Unknown, 05/20/11) propoxyphene napsylate (Unverified Allergy, Unknown, 05/20/11) Home Medication List Reviewed: Yes UNO-[id number]-Hydvkn Hx Patient Social History Marital Status: Employed/Student: retired Alcohol Use: Denies Use Recreational Drug Use: No Smoking Status: Unknown if Ever Smoked Recent Foreign Travel: No Recent Infectious Disease Expo: No Physical Abuse Screen: No Sexual Abuse: No Immunizations Up To Date Date of Pneumonia Vaccine: Mar 19, 2015 Date of Influenza Vaccine: Jan 05, 2017 Past Medical History past medical history as discussed below Family Medical History Family Medical Hx noncontributory to her current condition Constitutional: other (Patient is intubated, unresponsive, unable to provide any history or review of systems) Respiratory: short of breath Reviewed Test Results Reviewed Test Results Lab Laboratory Tests Test 03/19/17 05:00 03/19/17 05:10 03/19/17 05:20 03/19/17 06:00 Range/Units White Blood Count 8.9 4.3-11.0 10^3/uL Red Blood Count 4.02 L 4.35-5.85 10^6/uL Hemoglobin 11.7 11.5-16.0 G/DL Hematocrit 37 35-52 % Mean Corpuscular Volume 92 80-99 FL Mean Corpuscular Hemoglobin 29 25-34 PG Mean Corpuscular Hemoglobin Concent 32 32-36 G/DL Red Cell Distribution Width 13.9 10.0-14.5 % Platelet Count 189 130-400 10^3/uL Mean Platelet Volume 10.4 7.4-10.4 FL Neutrophils (%) (Auto) 78 H 42-75 % Lymphocytes (%) (Auto) 13 12-44 % Monocytes (%) (Auto) 8 0-12 % Eosinophils (%) (Auto) 0 0-10 % Basophils (%) (Auto) 1 0-10 % Neutrophils # (Auto) 6.9 1.8-7.8 X 10^3 Lymphocytes # (Auto) 1.2 1.0-4.0 X 10^3 Monocytes # (Auto) 0.7 0.0-1.0 X 10^3 Eosinophils # (Auto) 0.0 0.0-0.3 10^3/uL Basophils # (Auto) 0.0 0.0-0.1 10^3/uL Sodium Level 139 135-145 MMOL/L Potassium Level 3.4 L 3.6-5.0 MMOL/L Chloride Level 102 98-107 MMOL/L Carbon Dioxide Level 24 21-32 MMOL/L Anion Gap 13 5-14 MMOL/L Blood Urea Nitrogen 16 7-18 MG/DL Creatinine 1.06 0.60-1.30 MG/DL Estimat Glomerular Filtration Rate 50 BUN/Creatinine Ratio 15 Glucose Level 232 H 70-105 MG/DL Lactic Acid Level 1.08 0.50-2.00 MMOL/L Calcium Level 8.3 L 8.5-10.1 MG/DL Phosphorus Level 4.5 2.3-4.7 MG/DL Magnesium Level 1.3 L 1.8-2.4 MG/DL Troponin I 2.20 *H <0.30 NG/ML B-Type Natriuretic Peptide 365.6 H <100.0 PG/ML Albumin 3.5 3.2-4.5 GM/DL Thyroid Stimulating Hormone (TSH) 1.55 0.35-4.94 UIU/ML Blood Gas Puncture Site LEFT RADIAL Blood Gas Patient Temperature 98.2 Arterial Blood pH 7.29 *L 7.37-7.43 Arterial Blood Partial Pressure CO2 58 H 35-45 MMHG Arterial Blood Partial Pressure O2 112 H 79-93 MMHG Arterial Blood HCO3 27 23-27 MMOL/L Arterial Blood Total CO2 29.2 21.0-31.0 MMOL/L Arterial Blood Oxygen Saturation 98 94-100 % Arterial Blood Base Excess 1.4 -2.5-2.5 MMOL/L Matheus Test YES-POS Blood Gas Ventilator Setting YES Blood Gas Inspired Oxygen 70% Prothrombin Time 14.3 12.2-14.7 SEC INR Comment 1.1 0.8-1.4 Urine Color YELLOW Urine Clarity CLEAR Urine pH 5 5-9 Urine Specific [place] 1.015 L 1.016-1.022 Urine Protein 2+ H NEGATIVE Urine Glucose (UA) NEGATIVE NEGATIVE Urine Ketones NEGATIVE NEGATIVE Urine Nitrite NEGATIVE NEGATIVE Urine Bilirubin NEGATIVE NEGATIVE Urine Urobilinogen NORMAL NORMAL MG/DL Urine Leukocyte Esterase NEGATIVE NEGATIVE Urine RBC (Auto) 1+ H NEGATIVE Urine RBC 2-5 H /HPF Urine WBC NONE /HPF Urine Squamous Epithelial Cells 2-5 /HPF Urine Crystals NONE /LPF Urine Bacteria NEGATIVE /HPF Urine Casts PRESENT /LPF Urine Hyaline Casts 25-50 H /LPF Urine Mucus MODERATE H /LPF Urine Culture Indicated NO Test 03/19/17 13:14 03/19/17 13:18 Range/Units Glucometer 248 H 70-110 MG/DL Physical Exam Vital Signs Vital Sign - Last 12Hours 03/19/17 03/19/17 03/19/17 03/19/17 04:00 04:30 05:00 08:00 Temp 97.9 Pulse 60 Resp 14 B/P (MAP) 83/40 (54) Pulse Ox 99 O2 Delivery Mechanical Ventilator O2 Flow Rate 50.00 FiO2 70 Capillary Refill : Less Than 3 Seconds General Appearance: WD/WN, Severe Distress Eyes: Bilateral Eye Normal Inspection, Bilateral Eye PERRL, Bilateral Eye EOMI HEENT: TMs Normal, Pharynx Normal Neck: Normal Inspection, Supple Respiratory: Crackles, Rales, Respiratory Distress, Wheezing Cardiovascular: Regular Rate, Rhythm, No Gallop, No JVD, Systolic Murmur, Gallop/S3 Gastrointestinal: Normal Bowel Sounds, No Organomegaly, No Pulsatile Mass, Non Tender, Soft Back: Normal Inspection Extremity: Normal Capillary Refill, Normal Inspection, No Pedal Edema Neurologic/Psychiatric: Other (Intubated and sedated) Skin: Normal Color, Warm/Dry Lymphatic: No Adenopathy A/P-Cardiology Admission Diagnosis Acute respiratory failure Non-ST elevation myocardial infarction Congestive heart failure, acute left ventricular systolic dysfunction, ischemic cardiomyopathy Hypotensive shock Assessment/Plan Acute respiratory failure, ventilatory dependent, hypotensive shock, cardiogenic shock on pressors. Responding to aggressive measures. Elevated troponin level, questionable worsening of her coronary artery disease non-ST elevation myocardial infarction, had a cardiac catheterization done in 2012 which showed moderate disease nonobstructive disease. Discussed the possible to of cardiac catheterization, at this time without a requesting to avoid procedure. Congestive heart failure, acute left ventricular systolic dysfunction, probably ischemic in nature. Continue with diuresis at this time. 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 Patient has been maintained on Eliquis due to her DVT and atrial fibrillation and tolerating it well. History of Sick sinus syndrome, paroxysmal atrial fibrillation, history of permanent pacemaker. Patient was maintained on Coumadin, it was discontinued after the hemorrhage. She was placed on Eliquis on January 16, 2014 due to deep venous thrombosis and A. fib and appeared to be tolerating it well. Patient is seeing Dr. Morales as an outpatient. Continue to monitor. [id number] Score is 4, yearly risk of stroke without oral anticoagulation is 8.5 percent. HAS-BLED score is 4, high risk, estimated Rate of major bleeding within one year on oral anticoagulation is 4.9-19.6 percent. Patient is maintained on oral anticoagulation due to atrial fibrillation and deep venous thrombosis. Risk and benefits of oral anticoagulation for patient was discussed with her and her daughter in great detail. They agree to continue oral anticoagulation, continue to monitor Peripheral vascular disease history of occlusion of the SFA status post endarterectomy. Monitored by heart and vascular care Hyperlipidemia, continue to monitor lipids Hypothyroidism, Followed and managed by primary care physician Questionable history of seizure, maintained on Keppra, Seen by Dr Maxwell History of Tobaccoism, patient has stopped smoking after her stroke, encouraged to continue with smoking cessation. Carotid stenosis history of left carotid endarterectomy, followed by heart and vascular. Continue to monitor. History of GI bleed, tolerating Eliquis at this time. Will follow closely. History of Snell's palsy Clinical Quality Measures DVT/VTE Risk/Contraindication: Risk Factor Score Per Nursin RFS Level Per Nursing on Admit: 4+=Very High DANO MESSINA MD Mar 19, 2017 13:47
[2017-03-19 16:28] LABS: ABG BASE EXCESS -0.1 MMOL/L (-2.5-2.5); ABG HCO3 25 MMOL/L (23-27); ABG OXYGEN SATURATION 97 % (94-100); ABG PCO2 47 MMHG (35-45); ABG PO2 86 MMHG (79-93); ABG TCO2 26.6 MMOL/L (21.0-31.0)
[2017-03-19 16:29] LABS: ABG PH 7.34 (7.37-7.43); ALLENS TEST YES-POS
[2017-03-20] VITALS (27 sets, daily range): BP systolic 96–177; BP diastolic 43–100
[2017-03-20] MEDS: RT-ALBUTEROL/IPRATROPIUM 3 ML (DUONEB) VIAL INH SCH ×6 (02:54→21:47)
[2017-03-20 04:33] LABS: BASOPHILS % (AUTO) 0 % (0-10); EOSINOPHILS % (AUTO) 0 % (0-10); LYMPHOCYTES # (AUTO) 1.4 X 10^3 (1.0-4.0); LYMPHOCYTES % (AUTO) 18 % (12-44); MEAN CORPUSCULAR HEMOGLOBIN 30 PG (25-34); MEAN CORPUSCULAR HGB CONC 33 G/DL (32-36); MEAN CORPUSCULAR VOLUME 93 FL (80-99); MEAN PLATELET VOLUME 10.7 FL (7.4-10.4); MONOCYTES # (AUTO) 0.8 X 10^3 (0.0-1.0); MONOCYTES % (AUTO) 10 % (0-12); NEUTROPHILS # (AUTO) 5.6 X 10^3 (1.8-7.8); NEUTROPHILS % (AUTO) 72 % (42-75); PLATELET COUNT 155 10^3/uL (130-400); RED BLOOD COUNT 3.27 10^6/uL (4.35-5.85); RED CELL DISTRIBUTION WIDTH 13.8 % (10.0-14.5); WHITE BLOOD COUNT 7.8 10^3/uL (4.3-11.0)
[2017-03-20 04:34] LABS: ABG BASE EXCESS -1.1 MMOL/L (-2.5-2.5); ABG HCO3 24 MMOL/L (23-27); ABG OXYGEN SATURATION 96 % (94-100); ABG PCO2 47 MMHG (35-45); ABG PO2 76 MMHG (79-93); ABG TCO2 25.8 MMOL/L (21.0-31.0)
[2017-03-20 04:39] LABS: ABG PH 7.33 (7.37-7.43); ALLENS TEST YES-POS; PATIENT TEMP 96.6
[2017-03-20 04:51] LABS: ANION GAP 11 MMOL/L (5-14); BLOOD UREA NITROGEN 10 MG/DL (7-18); BUN/CREATININE RATIO 14; CALCIUM 7.3 MG/DL (8.5-10.1); CARBON DIOXIDE 22 MMOL/L (21-32); CHLORIDE 108 MMOL/L (98-107); CREATININE SERUM 0.69 MG/DL (0.60-1.30); GFR ESTIMATED > 60; GLUCOSE 135 MG/DL (70-105); PHOSPHORUS 2.8 MG/DL (2.3-4.7); POTASSIUM 3.5 MMOL/L (3.6-5.0); SODIUM 141 MMOL/L (135-145)
[2017-03-20] MEDS: inSUlin ASPART (NovoLOG) 1 UNIT/0.01 ML (CHARGE PER UNIT) SC SCH ×5 (04:57→20:15)
--- NOTE | 2017-03-20 05:40 | Pulmonary Progress Note ---
Subjective Time Seen by Provider: 05:46 Subjective/Events-last exam No complications noted. Exam Exam Vital Signs Date Time Temp Pulse Resp B/P (MAP) Pulse Ox O2 Delivery O2 Flow Rate FiO2 03/20/17 05:00 98 24 121/100 (107) 95 Mechanical Ventilator 40.00 03/20/17 04:35 16 03/20/17 04:00 96.6 72 13 103/52 (69) 94 Mechanical Ventilator 40.00 03/20/17 04:00 Mechanical Ventilator 40 03/20/17 03:54 71 14 94 40 03/20/17 03:00 80 18 122/68 (86) 98 Mechanical Ventilator 40.00 03/20/17 02:54 81 20 96 40 03/20/17 02:00 89 25 137/72 (93) 96 Mechanical Ventilator 40.00 03/20/17 01:49 130/70 03/20/17 01:00 83 03/20/17 01:00 87 20 129/72 (91) 95 Mechanical Ventilator 40.00 03/20/17 00:00 Mechanical Ventilator 40 03/20/17 00:00 97.9 80 19 119/58 (78) 95 Mechanical Ventilator 40.00 03/19/17 23:59 80 18 94 40 03/19/17 23:00 81 17 126/59 (81) 93 Mechanical Ventilator 40.00 03/19/17 22:00 76 12 135/67 (89) 93 Mechanical Ventilator 40.00 03/19/17 21:58 76 19 92 40 03/19/17 21:00 78 20 142/71 (94) 94 Mechanical Ventilator 40.00 03/19/17 20:00 Mechanical Ventilator 40 03/19/17 20:00 96.8 71 16 113/56 (75) 90 Mechanical Ventilator 40.00 03/19/17 19:40 69 20 91 40 03/19/17 19:00 67 15 137/69 (91) 92 Mechanical Ventilator 40.00 03/19/17 19:00 70 03/19/17 18:30 66 21 91 40 03/19/17 18:00 60 19 112/60 (77) 91 Mechanical Ventilator 40.00 03/19/17 17:14 Mechanical Ventilator 03/19/17 17:00 64 14 105/53 (70) 91 Mechanical Ventilator 40.00 03/19/17 16:00 60 17 109/55 (73) 93 Mechanical Ventilator 40.00 03/19/17 16:00 97.0 Mechanical Ventilator 40.00 03/19/17 16:00 Mechanical Ventilator 40 03/19/17 15:00 60 17 115/56 (75) 94 Mechanical Ventilator 40.00 03/19/17 14:55 60 16 98 40 03/19/17 14:00 68 18 162/82 (108) 96 Mechanical Ventilator 40.00 03/19/17 13:15 64 18 95 40 03/19/17 13:00 60 23 152/72 (98) 96 Mechanical Ventilator 40.00 03/19/17 13:00 62 03/19/17 12:00 97.4 60 29 146/68 (94) Mechanical Ventilator 40.00 03/19/17 12:00 Mechanical Ventilator 50 03/19/17 11:30 64 9 139/59 (85) 95 Mechanical Ventilator 50.00 03/19/17 11:25 60 16 94 40 03/19/17 11:15 62 13 136/63 (87) 95 Mechanical Ventilator 50.00 03/19/17 11:00 60 14 112/43 (66) 94 Mechanical Ventilator 50.00 03/19/17 10:45 60 16 116/49 (71) 94 Mechanical Ventilator 50.00 03/19/17 10:30 60 15 114/48 (70) 94 Mechanical Ventilator 50.00 03/19/17 10:15 60 17 108/48 (68) 93 Mechanical Ventilator 50.00 03/19/17 10:00 59 15 106/64 (78) 93 Mechanical Ventilator 50.00 03/19/17 09:45 60 16 111/49 (69) 94 Mechanical Ventilator 50.00 03/19/17 09:43 60 19 94 40 03/19/17 09:30 60 14 107/49 (68) 96 Mechanical Ventilator 50.00 03/19/17 09:15 60 18 111/46 (67) 98 Mechanical Ventilator 50.00 03/19/17 09:00 60 18 108/49 (68) 96 Mechanical Ventilator 50.00 03/19/17 08:45 66 13 108/44 (65) 98 Mechanical Ventilator 50.00 03/19/17 08:30 60 14 118/64 (82) 95 Mechanical Ventilator 50.00 03/19/17 08:26 Mechanical Ventilator 70 03/19/17 08:15 62 14 109/87 (94) 95 Mechanical Ventilator 50.00 03/19/17 08:07 Mechanical Ventilator 03/19/17 08:00 Mechanical Ventilator 50 03/19/17 08:00 97.9 03/19/17 08:00 60 14 99/50 (66) 95 Mechanical Ventilator 50.00 03/19/17 07:23 70 14 97 50 03/19/17 07:00 104/65 (78) 03/19/17 06:09 64 03/19/17 06:00 60 14 99/50 (66) 95 Mechanical Ventilator 50.00 I & O 03/20/17 06:59 Intake Total 6650 ml Output Total 2975 ml Balance 3675 ml General Appearance: WD/WN, Other (SEDATED ON VENT) HEENT: TMs Normal, Pharynx Normal Neck: Normal Inspection, Supple Respiratory: Crackles, Rales, Respiratory Distress, Wheezing Cardiovascular: Regular Rate, Rhythm, No Gallop, No JVD, Systolic Murmur, Gallop/S3 Capillary Refill: Less Than 3 Seconds Gastrointestinal: normal bowel sounds, non tender, soft Extremity: Normal Capillary Refill, Normal Inspection, No Pedal Edema Neurologic/Psychiatric: Other (Intubated and sedated) Skin: Normal Color, Warm/Dry Lymphatic: No Adenopathy Results Lab Laboratory Tests 03/19/17 05:00 03/20/17 04:16 Assessment/Plan Assessment/Plan Acute respiratory failure - improving -CXR is pending -Continue ventilatory support -- will try to wean vent today -d/c SEDATION NSTEMI with CHF EF 40% -KVO IVF and start lasix -consult cardiology S/p subarachnoid hemorrhage 01/06/14 (clipping of aneurysm at [place]) -CT of head reviewed Hypotension - probably secondary to sedation and intubation -CXR is pending -NO SIGNS OF SEPSIS WILL D/C ABX Electrolyte abnormality -replace Obesity with hx of MALLY 233 Clinical Quality Measures DVT/VTE Risk/Contraindication: Risk Factor Score Per Nursin RFS Level Per Nursing on Admit: 4+=Very High ABEL LEONARDO DO Mar 20, 2017 05:40
[2017-03-20] MEDS: NS IV 1000 ML 1,000 ML IV SCH (05:42)
[2017-03-20] MEDS: MAGNESIUM 1 GM/100 ML IVPB 100 ML IV SCH (05:44)
[2017-03-20] MEDS: KCL 20 MEQ TAB (K-DUR) PO SCH (05:44)
[2017-03-20] MEDS: POTASSIUM CL 10MEQ/50ML IVPB 50 ML IV SCH ×9 (05:44→10:10)
[2017-03-20] MEDS: PANTOPRAZOLE 40 MG/10 ML (PROTONIX) VIAL IV SCH ×2 (05:48→16:22)
[2017-03-20] MEDS ORDERED: FUROSEMIDE 40 MG/4 ML INJ (LASIX) IVP ONE ×2 (06:00→11:30)
[2017-03-20 06:28] LABS: ABG BASE EXCESS -1.3 MMOL/L (-2.5-2.5); ABG HCO3 24 MMOL/L (23-27); ABG OXYGEN SATURATION 98 % (94-100); ABG PCO2 44 MMHG (35-45); ABG PH 7.35 (7.37-7.43); ABG PO2 96 MMHG (79-93)
[2017-03-20 06:29] LABS: ALLENS TEST YES-POS; PATIENT TEMP 97.9
[2017-03-20] MEDS ORDERED: VANCOMYCIN INJECTION 1,500 MG in NS IV 500 ML 500 ML IV SCH (07:30)
--- NOTE | 2017-03-20 08:20 | Diagnostic Imaging Report ---
INDICATION: Pneumonia. Portable chest shows normal heart size and vascularity. No infiltrates or effusions are seen. The ET tube and OG tube remain in place. The chest is similar to the prior study from 03/19/2017. IMPRESSION: Stable chest. Dictated by: Dictated on workstation # [id number]
[2017-03-20] MEDS: CHLORHEXIDINE 0.12% SOLN 15 ML (PERIDEX) UDC PO SCH ×2 (08:33→20:12)
--- NOTE | 2017-03-20 10:03 | Progress Note-Hospitalist ---
Subjective HPI/CC On Admission Date Seen by Provider: Mar 20, 2017 Time Seen by Provider: 09:30 CC: Respiratory failure HPI: This is a 81 yoWF that transferred from [facility] at 0300 after traveling there by EMS due to SOB. Found to have bilateral infiltrate on CXR requiring intubation. Dr. Vincent was consulted. Pt is on pressor therapy from hypotension and for sepsis. Maintain aggressive supportive care. 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 The following interview was conducted with present family: Family confirms that Dr. Garza sent the pt over here Pneumonia and treatment was discussed with family, the family was informed that the pneumonia has stressed her heart Family was informed that the pt is stable but critically ill. Dr. Villalobos confirmed as PCP Family asked if pt was septic and I confirmed this. Family was assured that they did not do anything wrong when taking care of her and these symptoms can occur rapidly Physical exam stable. Family states she is DNR. Family unsure if what the pt has is a living will but they were assured that the pt is not at that point yet. I informed the family that pt will stay over weekend and remain intubated Abx, fluids, and BP meds discussed Scribed by Padmini Wade under direct supervision of Dr. Viji Penny. Subjective/Events-last exam patient was extubated this morning without complication by Dr. Vincent. She complains of a sore throat and appears to be a little bit wheezy but otherwise seems to be stable. Oxygen saturation on 4 L drops to 91 percent when she is at rest. She now notes that she had not had any injury when she was home but had been sitting on the side of her bed and slid to the floor. She said she was there until someone discovered her. She denies having any antecedent event. She denies having any recent upper respiratory tract infection or chest discomfort. She walks to meals 3 times a day with a walker. Review of Systems HEENT: Sore Throat Pulmonary: Dyspnea Neurological: Weakness Objective Exam Vital Signs Vital Sign - Last 12Hours 03/19/17 03/19/17 03/19/17 03/19/17 04:00 04:30 05:00 08:00 Temp 97.9 Pulse 60 Resp 14 B/P (MAP) 83/40 (54) Pulse Ox 99 O2 Delivery Mechanical Ventilator O2 Flow Rate 50.00 FiO2 70 Capillary Refill : Less Than 3 Seconds General Appearance: Mild Distress, Obese Eyes: Left Eye Other (a facial droop) Neck: Limited Range of Motion Respiratory: Decreased Breath Sounds, Rales, Wheezing Cardiovascular: Regular Rate, Rhythm, No Gallop, Systolic Murmur Gastrointestinal: Non Tender, Soft Extremity: Pedal Edema Neurologic/Psychiatric: Alert Skin: Pallor Results/Procedures Lab Laboratory Tests 03/20/17 16:32 03/21/17 04:20 Assessment/Plan Assessment and Plan Assess & Plan/Chief Complaint Acute respiratory failure, status post ventilation now extubated, on 4 L-no evidence of pneumonia on chest x-ray today hypotensive shock, cardiogenic shock ;off pressors, now with hypertension Will restart her sotalol Elevated troponin level, questionable worsening of her coronary artery disease non-ST elevation myocardial infarction, had a cardiac catheterization done in 2012 which showed moderate disease nonobstructive disease. we will recheck troponin today. hypomagnesemia-will replace Congestive heart failure, acute left ventricular systolic dysfunction, probably ischemic in nature. Continue with diuresis at this time. history of A. 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 Patient has been maintained on Eliquis due to her DVT and atrial fibrillation and tolerating it well. History of Sick sinus syndrome, paroxysmal atrial fibrillation, history of permanent pacemaker. Patient was maintained on Coumadin, it was discontinued after the hemorrhage. She was placed on Eliquis on January 16, 2014 due to deep venous thrombosis and A. fib and appeared to be tolerating it well. Patient is seeing Dr. Morales as an outpatient. Continue to monitor. Peripheral vascular disease history of occlusion of the SFA status post endarterectomy. Hyperlipidemia, continue to monitor lipids-we'll restart her Lipitor Hypothyroidism,Will restart her thyroid Questionable history of seizure, maintained on Keppra, Seen by Dr Maxwell History of GI bleed, tolerating Eliquis at this time. Will follow closely.we'll restart her Nexium AKBAR MA MD Mar 20, 2017 10:03
[2017-03-20] MEDS: RT-ALBUTEROL/IPRATROPIUM 3 ML (DUONEB) VIAL INH PRN ×2 (10:36→10:43)
--- NOTE | 2017-03-20 11:12 | Cardiology Progress Note ---
Cardiology SOAP Progress Note Subjective: extubated today. No significant shortness of breath. Objective: I&O/Vital Signs Vital Sign - Last 12Hours 03/19/17 03/20/17 03/20/17 03/20/17 23:59 00:00 00:00 01:00 Temp 97.9 Pulse 80 80 87 Resp 18 19 20 B/P (MAP) 119/58 (78) 129/72 (91) Pulse Ox 94 95 95 O2 Delivery Mechanical Ventilator Mechanical Ventilator Mechanical Ventilator O2 Flow Rate 40.00 40.00 FiO2 40 40 03/20/17 03/20/17 03/20/17 03/20/17 01:00 01:49 02:00 02:54 Pulse 83 89 81 Resp 25 20 B/P (MAP) 130/70 137/72 (93) Pulse Ox 96 96 O2 Delivery Mechanical Ventilator O2 Flow Rate 40.00 FiO2 40 03/20/17 03/20/17 03/20/17 03/20/17 03:00 03:54 04:00 04:00 Temp 96.6 Pulse 80 71 72 Resp 18 14 13 B/P (MAP) 122/68 (86) 103/52 (69) Pulse Ox 98 94 94 O2 Delivery Mechanical Ventilator Mechanical Ventilator Mechanical Ventilator O2 Flow Rate 40.00 40.00 FiO2 40 40 03/20/17 03/20/17 03/20/17 03/20/17 04:35 05:00 05:43 06:00 Pulse 98 79 81 Resp 16 24 20 27 B/P (MAP) 121/100 (107) 164/82 (109) Pulse Ox 95 97 94 O2 Delivery Mechanical Ventilator Mechanical Ventilator O2 Flow Rate 40.00 40.00 FiO2 40 03/20/17 03/20/17 03/20/17 03/20/17 06:26 07:00 07:05 08:00 Temp 97.1 Pulse 81 89 85 80 Resp 18 20 18 B/P (MAP) 141/84 (103) 146/76 (99) Pulse Ox 100 97 95 O2 Delivery Mechanical Ventilator Nasal Cannula O2 Flow Rate 40.00 3.00 FiO2 40 03/20/17 03/20/17 03/20/17 03/20/17 08:00 08:12 10:36 10:44 Pulse Ox 97 97 98 O2 Delivery Nasal Cannula Nasal Cannula Nasal Cannula Nasal Cannula O2 Flow Rate 3.00 3.00 3.00 3.00 Intake and Output 03/20/17 00:00 Intake Total 2350 ml Output Total 1575 ml Balance 775 ml Weight (Pounds): 228 Weight (Ounces): 1.0 Weight (Calculated Kilograms): 103.444624 Constitutional: No appears stated age, No AAO x 3, No apparent distress, No PERRL, No well-developed, No well-nourished, No other Respiratory: No accessory muscle use, No respiratory distress, No chest tender , No chest expansion is symmetric, No chest is bilaterally symmetric, No lungs clear to percussion, No lungs clear to auscultation, No crackles, No rhonchi, No rales, No stridor, No wheezing, No pleural rub, No other Cardiovascular: No regular rate-rhythm, No irregularly irregular, No extra beats, No parasternal heave is noted, No JVD, No edema, No bradycardia, No tachycardia, No point of maximal impulse, No cardiac thrills are palpable, No S1 and S2, No gallop/S3, No gallop/S4, No diastolic murmur, No systolic murmur, No friction rub, No click, No other Gastrointestional: No tender, No soft, No round, No distended, No pulsatile mass, No organomegaly, No guarding, No rebound, No tenderness, No hernia, No mass, No audible bowel sounds, No abnormal bowel sounds, No abdominal bruits, No spleenomegaly, No other Extremities: No normal range of motion, No non-tender, No normal inspection, No pedal edema, No calf tenderness, No normal capillary refill, No pelvis stable , No calf tenderness, No inflammation, No pedal edema, No slow capillary refill , No swelling, No other, No abrasion, No clubbing, No cyanosis, No ecchymosis, No laceration, No no lower extremity edema bilateral, No significant edema, No tenderness, No wound Neurologic/Psychiatric: No permit review assistant II-XII nml as tested, No no motor/sensory deficits, No alert, No normal mood/affect, No oriented x 3, No abnormal cerebellar tests, No abnormal permit review assistant II-XII, No abnormal gait, No aphasia, No EOM palsy, No facial droop, No motor weakness, No sensory deficit, No depressed affect, No disoriented x 3, No other, No grossly intact, No power is 5/5 both on sides Skin: No normal color, No warm/dry, No cyanosis, No cool, No diaphoresis, No damp, No ecchymosis, No jaundice, No mottled, No pallor, No rash, No tattoos/ piercings, No ulcerations, No rash on exposed areas, No ulcerations on exposed areas, No other Results/Procedures: Labs Laboratory Tests 03/19/17 13:14: Troponin I 3.21*H 03/19/17 13:18: Glucometer 248H 03/19/17 16:15: Blood Gas Puncture Site LR, Blood Gas Patient Temperature 97.0, Arterial Blood pH 7.34*L, Arterial Blood Partial Pressure CO2 47H, Arterial Blood Partial Pressure O2 86, Arterial Blood HCO3 25, Arterial Blood Total CO2 26.6, Arterial Blood Oxygen Saturation 97, Arterial Blood Base Excess -0.1, Matheus Test YES-POS , Blood Gas Ventilator Setting YES, Blood Gas Inspired Oxygen 40% 03/19/17 16:39: Glucometer 179H 03/19/17 20:06: Troponin I 2.66*H 03/19/17 23:37: Glucometer 131H 03/19/17 23:40: Troponin I 2.58*H 03/20/17 04:16: White Blood Count 7.8, Red Blood Count 3.27L, Hemoglobin 9.9L, Hematocrit 30L, Mean Corpuscular Volume 93, Mean Corpuscular Hemoglobin 30, Mean Corpuscular Hemoglobin Concent 33, Red Cell Distribution Width 13.8, Platelet Count 155, Mean Platelet Volume 10.7H, Neutrophils (%) (Auto) 72, Lymphocytes (%) (Auto) 18 , Monocytes (%) (Auto) 10, Eosinophils (%) (Auto) 0, Basophils (%) (Auto) 0, Neutrophils # (Auto) 5.6, Lymphocytes # (Auto) 1.4, Monocytes # (Auto) 0.8, Eosinophils # (Auto) 0.0, Basophils # (Auto) 0.0, Blood Gas Puncture Site LEFT RADIAL, Blood Gas Patient Temperature 96.6, Arterial Blood pH 7.33*L, Arterial Blood Partial Pressure CO2 47H, Arterial Blood Partial Pressure O2 76L, Arterial Blood HCO3 24, Arterial Blood Total CO2 25.8, Arterial Blood Oxygen Saturation 96, Arterial Blood Base Excess -1.1, Matheus Test YES-POS, Blood Gas Ventilator Setting YES, Blood Gas Inspired Oxygen 40%, Sodium Level 141, Potassium Level 3.5L, Chloride Level 108H, Carbon Dioxide Level 22, Anion Gap 11 , Blood Urea Nitrogen 10, Creatinine 0.69, Estimat Glomerular Filtration Rate > 60, BUN/Creatinine Ratio 14, Glucose Level 135H, Calcium Level 7.3L, Phosphorus Level 2.8, Magnesium Level 2.0 03/20/17 06:20: Blood Gas Puncture Site LEFT RADIAL, Blood Gas Patient Temperature 97.9, Arterial Blood pH 7.35L, Arterial Blood Partial Pressure CO2 44, Arterial Blood Partial Pressure O2 96H, Arterial Blood HCO3 24, Arterial Blood Total CO2 25.0, Arterial Blood Oxygen Saturation 98, Arterial Blood Base Excess -1.3, Matheus Test YES-POS, Blood Gas Ventilator Setting YES, Blood Gas Inspired Oxygen 40% 03/20/17 08:35: Glucometer 125H 03/20/17 10:45: Microbiology 03/19/17 Gram Stain, Resulted Pending 03/19/17 Sputum Culture - Preliminary, Resulted Results To Follow A/P: Assessment/Dx: Acute respiratory failure Non-ST elevation myocardial infarction Congestive heart failure, acute left ventricular systolic dysfunction, ischemic cardiomyopathy Hypotensive shock Plan: Acute respiratory failure, extubated today. Was initially in cardiogenic shock on pressors. Much improved today. Elevated troponin level, questionable worsening of her coronary artery disease non-ST elevation myocardial infarction, had a cardiac catheterization done in 2012 which showed moderate disease nonobstructive disease. might need coronary angiography. Congestive heart failure, acute left ventricular systolic dysfunction, probably ischemic in nature. Continue with diuresis at this time. we will gradually start beta blockers and tayler inhibitors. 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 Patient has been maintained on Eliquis due to her DVT and atrial fibrillation and tolerating it well. History of Sick sinus syndrome, paroxysmal atrial fibrillation, history of permanent pacemaker. Patient was maintained on Coumadin, it was discontinued after the hemorrhage. She was placed on Eliquis on January 16, 2014 due to deep venous thrombosis and A. fib and appeared to be tolerating it well. Patient is seeing Dr. Morales as an outpatient. Continue to monitor. [id number] Score is 4, yearly risk of stroke without oral anticoagulation is 8.5 percent. HAS-BLED score is 4, high risk, estimated Rate of major bleeding within one year on oral anticoagulation is 4.9-19.6 percent. Patient is maintained on oral anticoagulation due to atrial fibrillation and deep venous thrombosis. Risk and benefits of oral anticoagulation for patient was discussed with her and her daughter in great detail. They agree to continue oral anticoagulation, continue to monitor Peripheral vascular disease history of occlusion of the SFA status post endarterectomy. Monitored by heart and vascular care Hyperlipidemia, continue to monitor lipids Hypothyroidism, Followed and managed by primary care physician Questionable history of seizure, maintained on Keppra, Seen by Dr Maxwell History of Tobaccoism, patient has stopped smoking after her stroke, encouraged to continue with smoking cessation. Carotid stenosis history of left carotid endarterectomy, followed by heart and vascular. Continue to monitor. History of GI bleed, tolerating Eliquis at this time. Will follow closely. History of Snell's palsy Thank you for your consultation. Please call me if you have any questions. Rahat Yang MD, FACP, FACC, FSCAI, FHRS, CCDS Interventional Cardiology Cardiac Electrophysiology Vascular Medicine and Endovascular Interventions Kayode YANG MD Mar 20, 2017 11:12 am
--- NOTE | 2017-03-20 14:23 | Physical Therapy Evaluation ---
PT Evaluation-General Medical Diagnosis Admission Date Mar 19, 2017 at 04:34 Medical Diagnosis: syncope Onset Date: Mar 20, 2017 Therapy Diagnosis Therapy Diagnosis: deconditioning Height/Weight Height (Feet): 5 Height (Inches): 6.00 Weight (Pounds): 228 Weight (Ounces): 1.0 Precautions Precautions/Isolations: Fall Prevention, Standard Precautions Weight Bear Status Right Lower Extremity: Right Weight Bearing/Tolerated Left Lower Extremity: Left Weight Bearing/Tolerated Referral Physician: Hemalatha Reason for Referral: Strengthening Social History Home: Assisted Living Current Living Status: Prior/Core FIM Prior Level of Function Functional [place] Measure 0=Not Assessed/NA 4=Minimal Assistance 1=Total Assistance 5=Supervision or Setup 2=Maximal Assistance 6=Modified [place] 3=Moderate Assistance 7=Complete [place] Bed Mobility: 7 Transfers (B,C,W/C) (FIM): 7 Gait: 6 PT Evaluation-Current Subjective The patient was agitaged during evaluation and was wanting to go home. Pain Numeric Pain Scale: 0-No Pain ROM/Strength Strength Lower Extremities 3+/5 Transfers Functional [place] Measure 0=Not Assessed/NA 4=Minimal Assistance 1=Total Assistance 5=Supervision or Setup 2=Maximal Assistance 6=Modified [place] 3=Moderate Assistance 7=Complete [place] Transfers (B, C, W/C) (FIM): 2 Scootin Rollin Supine to/from Sit: 2 Gait Comments/Gait Description Did not stand patient secondary to significant wheezing and SOB. RT suggested sit on EOB only. Balance Sitting Static: Fair Sitting Dynamic: Fair Assessment/Needs Patient has significant functional mobility limitations secondary to endurance and strength limitations. The patient should do well with skilled therapy. 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 Goals PT Metal Rolling [employer] Operator Goals Time Frame: Apr 03, 2017 Transfers (B,C,W/C) (FIM): 5 Gait (FIM): 5 Gait distance (FIM): 3=150 ft Distance: 150' Gait Level of Assist: 5 Gait Assistive Device: FWW PT Plan Problem List Problem List: Activity Tolerance, Functional Strength, Balance, Gait, Transfer , Bed Mobility Treatment/Plan Treatment Plan: Continue Plan of Care Treatment Plan: Bed Mobility, Functional Activity Garth, Functional Strength, Gait, Safety, Therapeutic Exercise, Transfers Treatment Duration: Apr 03, 2017 Frequency: 6 times per week Estimated Hrs Per Day: .5 hour per day Patient and/or Family Agrees t: Yes Discharge Recommendations Therapy D/C Recommendations: [facility] (TCU/NH) Time/GCodes Time In: 1350 Time Out: 1405 Total Billed Treatment Time: 15 Total Billed Treatment 1, ROSELYN Zhou Codes Necessary: COBY Sky PT Mar 20, 2017 14:23
[2017-03-20] MEDS: ALPRAZolam 0.25 MG (XANAX) TAB PO PRN (16:22)
[2017-03-20] MEDS: SOTALOL 80 MG (BETAPACE) TAB PO SCH (20:11)
[2017-03-20] MEDS: APIXABAN 5 MG (ELIQUIS) TABLET PO SCH (20:11)
[2017-03-20] MEDS: ATORVASTATIN 40 MG (LIPITOR) TABLET PO SCH (20:11)
[2017-03-20] MEDS ORDERED: NON-FORMULARY MEDICATION 1 EA EA (Sotalol HCl (Sotalol) 80 MG) PO SCH (21:00)
[2017-03-21] VITALS (16 sets, daily range): BP systolic 94–159; BP diastolic 45–101
[2017-03-21] MEDS: RT-ALBUTEROL/IPRATROPIUM 3 ML (DUONEB) VIAL INH SCH ×6 (00:42→22:48)
[2017-03-21] MEDS: ALPRAZolam 0.25 MG (XANAX) TAB PO PRN ×2 (01:04→09:07)
[2017-03-21 04:28] LABS: BASOPHILS % (AUTO) 0 % (0-10); EOSINOPHILS % (AUTO) 0 % (0-10); LYMPHOCYTES # (AUTO) 2.1 X 10^3 (1.0-4.0); LYMPHOCYTES % (AUTO) 23 % (12-44); MEAN CORPUSCULAR HEMOGLOBIN 30 PG (25-34); MEAN CORPUSCULAR HGB CONC 32 G/DL (32-36); MEAN CORPUSCULAR VOLUME 93 FL (80-99); MEAN PLATELET VOLUME 10.5 FL (7.4-10.4); MONOCYTES # (AUTO) 0.6 X 10^3 (0.0-1.0); MONOCYTES % (AUTO) 7 % (0-12); NEUTROPHILS # (AUTO) 6.1 X 10^3 (1.8-7.8); NEUTROPHILS % (AUTO) 69 % (42-75); PLATELET COUNT 195 10^3/uL (130-400); RED BLOOD COUNT 3.69 10^6/uL (4.35-5.85); RED CELL DISTRIBUTION WIDTH 14.3 % (10.0-14.5); WHITE BLOOD COUNT 8.8 10^3/uL (4.3-11.0)
[2017-03-21 04:45] LABS: ANION GAP 13 MMOL/L (5-14); BLOOD UREA NITROGEN 9 MG/DL (7-18); BUN/CREATININE RATIO 11; CALCIUM 8.4 MG/DL (8.5-10.1); CARBON DIOXIDE 27 MMOL/L (21-32); CHLORIDE 100 MMOL/L (98-107); CREATININE SERUM 0.79 MG/DL (0.60-1.30); GFR ESTIMATED > 60; GLUCOSE 145 MG/DL (70-105); MAGNESIUM 1.4 MG/DL (1.8-2.4); PHOSPHORUS 1.8 MG/DL (2.3-4.7); POTASSIUM 3.4 MMOL/L (3.6-5.0); SODIUM 140 MMOL/L (135-145)
[2017-03-21] MEDS: inSUlin ASPART (NovoLOG) 1 UNIT/0.01 ML (CHARGE PER UNIT) SC SCH ×4 (05:09→21:00)
[2017-03-21] MEDS: MAGNESIUM 1 GM/100 ML IVPB 100 ML IV SCH ×3 (05:10→06:29)
[2017-03-21] MEDS: KCL 20 MEQ TAB (K-DUR) PO SCH (05:10)
[2017-03-21] MEDS: POTASSIUM CL 10MEQ/50ML IVPB 50 ML IV SCH ×3 (05:10→06:28)
[2017-03-21] MEDS: PANTOPRAZOLE 40 MG/10 ML (PROTONIX) VIAL IV SCH ×2 (05:18→16:45)
[2017-03-21] MEDS: LEVOTHYROXINE 50 MCG (LEVOTHROID) TAB PO SCH (05:33)
[2017-03-21] MEDS ORDERED: TROUGH ORDER-PHARMACY XX NR (06:30)
[2017-03-21] MEDS ORDERED: PANTOPRAZOLE 40 MG (PROTONIX) TAB PO SCH (07:00)
--- NOTE | 2017-03-21 07:26 | Diagnostic Imaging Report ---
INDICATION: Pneumonia The heart size and vascularity are normal. The lungs are clear. There is no effusion or pneumothorax. PICC line tip is in the SVC. There is no change from 03/20/2017. IMPRESSION: Stable chest. Dictated by: Dictated on workstation # [id number]
[2017-03-21] MEDS: APIXABAN 5 MG (ELIQUIS) TABLET PO SCH ×2 (09:07→20:46)
[2017-03-21] MEDS: SERTRALINE 50 MG (ZOLOFT) TABLET PO SCH (09:07)
[2017-03-21] MEDS: SOTALOL 80 MG (BETAPACE) TAB PO SCH ×2 (09:07→20:46)
[2017-03-21] MEDS: MAGNESIUM OXIDE (MAG-OX)400 MG TAB PO SCH (09:07)
[2017-03-21] MEDS: CHLORHEXIDINE 0.12% SOLN 15 ML (PERIDEX) UDC PO SCH (09:21)
[2017-03-21] MEDS: NS IV 1000 ML 1,000 ML IV SCH ×2 (09:21→14:04)
--- NOTE | 2017-03-21 09:39 | Progress Note-Hospitalist ---
Subjective HPI/CC On Admission Date Seen by Provider: Mar 21, 2017 Time Seen by Provider: 09:00 CC: Respiratory failure HPI: This is a 81 yoWF that transferred [place] [facility]300 after traveling there by EMS due to SOB. Found to have bilateral infiltrate on CXR requiring intubation. Dr. Vincent was consulted. Pt is on pressor therapy from hypotension and for sepsis. Maintain aggressive supportive ca Patient Interview: Pt was not alert upon interview. The following interview was conducted with present family: Family confirms that Dr. Garza sent the pt over here Pneumonia and treatment was discussed with family, the family was informed that the pneumonia has stressed her heart Family was informed that the pt is stable but critically ill. Dr. Villalobos confirmed as PCP Family asked if pt was septic and I confirmed this. Family was assured that they did not do anything wrong when taking care of her and these symptoms can occur rapidly Physical exam stable. Family states she is DNR. Family unsure if what the pt has is a living will but they were assured that the pt is not at that point yet. I informed the family that pt will stay over weekend and remain intubated Abx, fluids, and BP meds discussed Scribed by Padmini Wade under direct supervision of Dr. Viji Penny. Subjective/Events-last exam patient is lying flat and has some audible wheezing. However her neck is in an awkward position and her lung bases sound clear. When asked if she wants to get up in a chair today she says no. She is in and out of A. fib and paced rhythm. Currently in sinus rhythm. She takes her oxygen off Review of Systems Neurological: Weakness Objective Exam Vital Signs Vital Sign - Last 12Hours 03/19/17 03/19/17 03/19/17 03/19/17 04:00 04:30 05:00 08:00 Temp 97.9 Pulse 60 Resp 14 B/P (MAP) 83/40 (54) Pulse Ox 99 O2 Delivery Mechanical Ventilator O2 Flow Rate 50.00 FiO2 70 Capillary Refill : Less Than 3 Seconds General Appearance: Mild Distress, Obese HEENT: Other (left facial droop) Neck: Limited Range of Motion Respiratory: Decreased Breath Sounds, Wheezing Cardiovascular: Irregularly Irregular Gastrointestinal: Normal Bowel Sounds, Non Tender, Soft Extremity: Pedal Edema Neurologic/Psychiatric: Alert, Depressed Affect, Facial Droop Skin: Pallor Results/Procedures Lab Laboratory Tests 12/16/17 16:32 03/21/17 04:20 Assessment/Plan Assessment and Plan Assess & Plan/Chief Complaint Acute respiratory failure, status post ventilation now extubated, on 3 L-chest x -ray today shows no acute process hypotensive shock, cardiogenic shock ;off pressors, now with hypertension. on sotalol Elevated troponin level, questionable worsening of her coronary artery disease non-ST elevation myocardial infarction, had a cardiac catheterization done in 2012 which showed moderate disease nonobstructive disease. hypomagnesemia-will replace Congestive heart failure, acute left ventricular systolic dysfunction, probably ischemic in nature. Continue with diuresis at this time.-patient had excellent diuresis yesterday. because of the wheezing will again give Lasix history of A. fib currently in sinus rhythm-but is intermittently and A. 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 Patient has been maintained on Eliquis due to her DVT and atrial fibrillation and tolerating it well. History of Sick sinus syndrome, paroxysmal atrial fibrillation, history of permanent pacemaker. Patient was maintained on Coumadin, it was discontinued after the hemorrhage. She was placed on Eliquis on January 16, 2014 due to deep venous thrombosis and A. fib and appeared to be tolerating it well. Patient is seeing Dr. Morales as an outpatient. she is on Eliquis Peripheral vascular disease history of occlusion of the SFA status post endarterectomy. Hyperlipidemia, continue to monitor lipids-we'll restart her Lipitor Hypothyroidism,Will restart her thyroid Questionable history of seizure, maintained on Keppra, Seen by Dr Maxwell History of Tobaccoism, patient has stopped smoking after her stroke, encouraged to continue with smoking cessation. Carotid stenosis history of left carotid endarterectomy, followed by heart and vascular. Continue to monitor. History of GI bleed, tolerating Eliquis at this time. Will follow closely.we'll restart her Nexium AKBAR MA MD Mar 21, 2017 9:39 am
[2017-03-21] MEDS ORDERED: FUROSEMIDE 40 MG/4 ML INJ (LASIX) IVP NR (09:45)
--- NOTE | 2017-03-21 11:54 | Cardiology Progress Note ---
Cardiology SOAP Progress Note Subjective: no significant shortness of breath Objective: I&O/Vital Signs Vital Sign - Last 12Hours 03/21/17 03/21/17 03/21/17 03/21/17 00:00 00:00 00:42 01:00 Pulse 71 73 Resp 24 27 B/P (MAP) 123/88 (100) 124/63 (83) Pulse Ox 93 94 91 O2 Delivery Nasal Cannula Nasal Cannula Nasal Cannula Nasal Cannula O2 Flow Rate 3.00 3.00 2.00 3.00 03/21/17 03/21/17 03/21/17 03/21/17 01:00 02:00 03:00 04:00 Pulse 73 65 66 94 Resp 23 27 35 B/P (MAP) 137/70 (92) 135/71 (92) 159/90 (113) Pulse Ox 98 96 91 O2 Delivery Nasal Cannula Nasal Cannula Nasal Cannula O2 Flow Rate 3.00 3.00 3.00 03/21/17 03/21/17 03/21/17 03/21/17 04:00 05:00 06:00 06:54 Pulse 85 85 Resp 26 11 B/P (MAP) 128/80 (96) 142/83 (102) Pulse Ox 95 91 96 O2 Delivery Nasal Cannula Nasal Cannula Nasal Cannula Nasal Cannula O2 Flow Rate 3.00 3.00 3.00 3.00 03/21/17 03/21/17 03/21/17 03/21/17 07:00 07:00 08:00 09:00 Pulse 86 86 81 87 Resp 31 25 26 B/P (MAP) 141/75 (97) 123/101 (108) 138/74 (95) Pulse Ox 98 95 98 O2 Delivery Nasal Cannula Nasal Cannula Nasal Cannula O2 Flow Rate 3.00 3.00 3.00 03/21/17 03/21/17 10:00 11:01 Pulse 74 Resp 27 B/P (MAP) 116/56 (76) Pulse Ox 98 97 O2 Delivery Nasal Cannula Nasal Cannula O2 Flow Rate 3.00 3.00 Intake and Output 03/21/17 00:00 Intake Total 300 ml Output Total 2950 ml Balance -2650 ml Weight (Pounds): 218 Weight (Ounces): 7.0 Weight (Calculated Kilograms): 99.641545 Constitutional: No appears stated age, No AAO x 3, No apparent distress, No PERRL, No well-developed, No well-nourished, No other Respiratory: No accessory muscle use, No respiratory distress, No chest tender , No chest expansion is symmetric, No chest is bilaterally symmetric, No lungs clear to percussion, No lungs clear to auscultation, No crackles, No rhonchi, No rales, No stridor, No wheezing, No pleural rub, other (coarse bilateral breathing) Cardiovascular: No regular rate-rhythm, No irregularly irregular, No extra beats, No parasternal heave is noted, No JVD, No edema, No bradycardia, No tachycardia, No point of maximal impulse, No cardiac thrills are palpable, No S1 and S2, No gallop/S3, No gallop/S4, No diastolic murmur, No systolic murmur, No friction rub, No click, No other Gastrointestional: No tender, No soft, No round, No distended, No pulsatile mass, No organomegaly, No guarding, No rebound, No tenderness, No hernia, No mass, No audible bowel sounds, No abnormal bowel sounds, No abdominal bruits, No spleenomegaly, No other Extremities: No normal range of motion, No non-tender, No normal inspection, No pedal edema, No calf tenderness, No normal capillary refill, No pelvis stable , No calf tenderness, No inflammation, No pedal edema, No slow capillary refill , No swelling, No other, No abrasion, No clubbing, No cyanosis, No ecchymosis, No laceration, No no lower extremity edema bilateral, No significant edema, No tenderness, No wound Neurologic/Psychiatric: No administrator health care facility II-XII nml as tested, No no motor/sensory deficits, No alert, No normal mood/affect, No oriented x 3, No abnormal cerebellar tests, No abnormal administrator health care facility II-XII, No abnormal gait, No aphasia, No EOM palsy, No facial droop, No motor weakness, No sensory deficit, No depressed affect, No disoriented x 3, No other, No grossly intact, No power is 5/5 both on sides Skin: No normal color, No warm/dry, No cyanosis, No cool, No diaphoresis, No damp, No ecchymosis, No jaundice, No mottled, No pallor, No rash, No tattoos/ piercings, No ulcerations, No rash on exposed areas, No ulcerations on exposed areas, No other Results/Procedures: Labs Laboratory Tests 03/20/17 16:31: Glucometer 122H 03/20/17 16:32: Potassium Level 3.7 03/20/17 20:14: Glucometer 118H 03/21/17 04:20: Potassium Level 3.4L, White Blood Count 8.8, Red Blood Count 3.69L, Hemoglobin 10.9L, Hematocrit 34L, Mean Corpuscular Volume 93, Mean Corpuscular Hemoglobin 30, Mean Corpuscular Hemoglobin Concent 32, Red Cell Distribution Width 14.3, Platelet Count 195, Mean Platelet Volume 10.5H, Neutrophils (%) (Auto) 69, Lymphocytes (%) (Auto) 23, Monocytes (%) (Auto) 7, Eosinophils (%) (Auto) 0, Basophils (%) (Auto) 0, Neutrophils # (Auto) 6.1, Lymphocytes # (Auto) 2.1, Monocytes # (Auto) 0.6, Eosinophils # (Auto) 0.0, Basophils # (Auto) 0.0, Sodium Level 140, Chloride Level 100, Carbon Dioxide Level 27, Anion Gap 13, Blood Urea Nitrogen 9, Creatinine 0.79, Estimat Glomerular Filtration Rate > 60 , BUN/Creatinine Ratio 11, Glucose Level 145H, Calcium Level 8.4L, Phosphorus Level 1.8L, Magnesium Level 1.4L Microbiology 03/19/17 Blood Culture - Preliminary, Resulted No growth 03/19/17 Gram Stain - Final, Resulted 03/19/17 Sputum Culture - Preliminary, Resulted See Comments A/P: Assessment/Dx: Acute respiratory failure Non-ST elevation myocardial infarction Congestive heart failure, acute left ventricular systolic dysfunction, ischemic cardiomyopathy Hypotensive shock Plan: Acute respiratory failure, extubated yesterday. Was initially in cardiogenic shock on pressors. Much improved today. Elevated troponin level, questionable worsening of her coronary artery disease non-ST elevation myocardial infarction, had a cardiac catheterization done in 2012 which showed moderate disease nonobstructive disease. might need coronary angiography in the future. Congestive heart failure, acute left ventricular systolic dysfunction, probably ischemic in nature. Continue with diuresis at this time. we will gradually start beta blockers and tayler inhibitors. 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 Patient has been maintained on Eliquis due to her DVT and atrial fibrillation and tolerating it well. History of Sick sinus syndrome, paroxysmal atrial fibrillation, history of permanent pacemaker. Patient was maintained on Coumadin, it was discontinued after the hemorrhage. She was placed on Eliquis on January 16, 2014 due to deep venous thrombosis and A. fib and appeared to be tolerating it well. Patient is seeing Dr. Morales as an outpatient. Continue to monitor. [id number] Score is 4, yearly risk of stroke without oral anticoagulation is 8.5 percent. HAS-BLED score is 4, high risk, estimated Rate of major bleeding within one year on oral anticoagulation is 4.9-19.6 percent. Patient is maintained on oral anticoagulation due to atrial fibrillation and deep venous thrombosis. Risk and benefits of oral anticoagulation for patient was discussed with her and her daughter in great detail. They agree to continue oral anticoagulation, continue to monitor Peripheral vascular disease history of occlusion of the SFA status post endarterectomy. Monitored by heart and vascular care Hyperlipidemia, continue to monitor lipids Hypothyroidism, Followed and managed by primary care physician Questionable history of seizure, maintained on Keppra, Seen by Dr Maxwell History of Tobaccoism, patient has stopped smoking after her stroke, encouraged to continue with smoking cessation. Carotid stenosis history of left carotid endarterectomy, followed by heart and vascular. Continue to monitor. History of GI bleed, tolerating Eliquis at this time. Will follow closely. History of Snell's palsy Thank you for your consultation. Please call me if you have any questions. Rahat Yang MD, FACP, FACC, FSCAI, FHRS, CCDS Interventional Cardiology Cardiac Electrophysiology Vascular Medicine and Endovascular Interventions Kayode YANG MD Mar 21, 2017 11:54 am
[2017-03-21] MEDS: ATORVASTATIN 40 MG (LIPITOR) TABLET PO SCH (20:46)
[2017-03-22] VITALS: BP 119/62
[2017-03-22] MEDS: RT-ALBUTEROL/IPRATROPIUM 3 ML (DUONEB) VIAL INH SCH ×6 (02:31→21:25)
[2017-03-22 04:00] VITALS: BP 99/63
[2017-03-22 06:02] LABS: BASOPHILS % (AUTO) 0 % (0-10); EOSINOPHILS # (AUTO) 0.1 10^3/uL (0.0-0.3); EOSINOPHILS % (AUTO) 1 % (0-10); LYMPHOCYTES # (AUTO) 1.9 X 10^3 (1.0-4.0); LYMPHOCYTES % (AUTO) 32 % (12-44); MEAN CORPUSCULAR HEMOGLOBIN 30 PG (25-34); MEAN CORPUSCULAR HGB CONC 32 G/DL (32-36); MEAN CORPUSCULAR VOLUME 93 FL (80-99); MEAN PLATELET VOLUME 10.3 FL (7.4-10.4); MONOCYTES # (AUTO) 0.5 X 10^3 (0.0-1.0); MONOCYTES % (AUTO) 9 % (0-12); NEUTROPHILS # (AUTO) 3.4 X 10^3 (1.8-7.8); NEUTROPHILS % (AUTO) 57 % (42-75); PLATELET COUNT 201 10^3/uL (130-400); RED BLOOD COUNT 3.66 10^6/uL (4.35-5.85); RED CELL DISTRIBUTION WIDTH 14.2 % (10.0-14.5); WHITE BLOOD COUNT 5.9 10^3/uL (4.3-11.0)
[2017-03-22 06:22] LABS: ANION GAP 9 MMOL/L (5-14); BLOOD UREA NITROGEN 14 MG/DL (7-18); BUN/CREATININE RATIO 18; CALCIUM 8.5 MG/DL (8.5-10.1); CARBON DIOXIDE 32 MMOL/L (21-32); CHLORIDE 100 MMOL/L (98-107); CREATININE SERUM 0.77 MG/DL (0.60-1.30); GFR ESTIMATED > 60; GLUCOSE 87 MG/DL (70-105); MAGNESIUM 1.8 MG/DL (1.8-2.4); PHOSPHORUS 3.6 MG/DL (2.3-4.7); POTASSIUM 3.5 MMOL/L (3.6-5.0); SODIUM 141 MMOL/L (135-145)
[2017-03-22] MEDS: LEVOTHYROXINE 50 MCG (LEVOTHROID) TAB PO SCH (06:25)
[2017-03-22] MEDS: PANTOPRAZOLE 40 MG/10 ML (PROTONIX) VIAL IV SCH ×2 (06:25→17:30)
[2017-03-22] MEDS: inSUlin ASPART (NovoLOG) 1 UNIT/0.01 ML (CHARGE PER UNIT) SC SCH ×4 (06:25→21:14)
--- NOTE | 2017-03-22 07:32 | Pulmonary Progress Note ---
Subjective Time Seen by Provider: 07:32 Subjective/Events-last exam No complications noted. Exam Exam Vital Signs Date Time Temp Pulse Resp B/P (MAP) Pulse Ox O2 Delivery O2 Flow Rate FiO2 03/22/17 07:22 95 Nasal Cannula 3.00 03/22/17 04:00 97.2 63 20 99/63 (75) 95 Nasal Cannula 3.00 03/22/17 02:31 88 Nasal Cannula 3.00 03/22/17 00:00 97.8 61 20 119/62 (81) 94 Nasal Cannula 3.00 03/21/17 22:48 90 Nasal Cannula 3.00 03/21/17 20:00 98.0 62 20 107/58 (74) 93 Nasal Cannula 3.00 03/21/17 19:12 93 Nasal Cannula 3.00 03/21/17 16:00 98.2 68 20 94/60 (71) 92 Nasal Cannula 3.00 03/21/17 14:40 Nasal Cannula 3.00 03/21/17 13:32 97.8 63 24 108/45 (66) 94 Nasal Cannula 3.00 03/21/17 13:25 Nasal Cannula 3.00 03/21/17 12:00 Nasal Cannula 3.00 03/21/17 12:00 98.6 Nasal Cannula 3.00 03/21/17 12:00 63 27 108/45 (66) 98 Nasal Cannula 3.00 03/21/17 11:01 97 Nasal Cannula 3.00 03/21/17 11:00 66 28 111/73 (86) 95 Nasal Cannula 3.00 03/21/17 10:00 74 27 116/56 (76) 98 Nasal Cannula 3.00 03/21/17 09:00 87 26 138/74 (95) 98 Nasal Cannula 3.00 03/21/17 08:00 Nasal Cannula 3.00 03/21/17 08:00 81 25 123/101 (108) 95 Nasal Cannula 3.00 03/21/17 08:00 98.0 Nasal Cannula 3.00 I & O 03/22/17 07:00 Intake Total 1250 ml Output Total 2075 ml Balance -825 ml General Appearance: No Apparent Distress, WD/WN, Obese HEENT: Other (left facial droop) Neck: Limited Range of Motion Respiratory: Decreased Breath Sounds, Rales, Wheezing Cardiovascular: Regular Rate, Rhythm, No Gallop, Systolic Murmur Capillary Refill: Less Than 3 Seconds Gastrointestinal: normal bowel sounds, non tender, soft Extremity: Pedal Edema Neurologic/Psychiatric: Alert Skin: Pallor Lymphatic: No Adenopathy Results Lab Laboratory Tests 03/20/17 16:32 03/21/17 04:20 03/22/17 05:55 Assessment/Plan Assessment/Plan Acute respiratory failure - improving -Pt doing well off ventilator -Will add prednisone taper secondary to wheezing. -SVNs. NSTEMI with CHF EF 40% - cardiology Hx of ICH Obesity with hx of MALLY PT is doing much better. 232 Clinical Quality Measures DVT/VTE Risk/Contraindication: Risk Factor Score Per Nursin RFS Level Per Nursing on Admit: 4+=Very High ABEL LEONARDO DO Mar 22, 2017 07:32
--- NOTE | 2017-03-22 07:53 | Diagnostic Imaging Report ---
INDICATION: Pneumonia COMPARISON STUDY: Chest from March the . FINDINGS: Portable view of the chest demonstrates stable cardiomegaly, cardiac pacemaker and right arm PICC line. Mild pulmonary congestion has nearly resolved. IMPRESSION: Stable cardiomegaly. Mild pulmonary congestion has nearly resolved. Dictated by: Dictated on workstation # [id number]
[2017-03-22 08:00] VITALS: BP 124/68
[2017-03-22] MEDS: SOTALOL 80 MG (BETAPACE) TAB PO SCH ×2 (08:41→20:00)
[2017-03-22] MEDS: APIXABAN 5 MG (ELIQUIS) TABLET PO SCH ×2 (08:43→20:03)
[2017-03-22] MEDS: MAGNESIUM OXIDE (MAG-OX)400 MG TAB PO SCH (08:43)
[2017-03-22] MEDS: predniSONE 10 MG TAB PO SCH (08:44)
[2017-03-22] MEDS: SERTRALINE 50 MG (ZOLOFT) TABLET PO SCH (08:44)
--- NOTE | 2017-03-22 10:02 | Cardiology Progress Note ---
Subjective Date Seen by Provider: Mar 22, 2017 Time Seen by Provider: 09:56 Subjective/Events-last exam Patient is in bed, feeling better, still having shortness of breath, discussed with patient and daughter regarding her condition and elevated troponin, they both agreed on conservative management for now Review of Systems General: No Chills, No Night Sweats, No Fatigue, No Malaise, No Appetite, No Other HEENT: No Head Aches, No Visual Changes, No Eye Pain, No Ear Pain, No Dysphasia , No Sinus Congestion, No Post Nasal Drip, No Sore Throat, No Other Pulmonary: Dyspnea, No Cough, No Pleuritic Chest Pain, No Other Cardiovascular: Edema, No: Chest Pain, Palpitations, Orthopnea, Paroxysmal Noc. Dyspnea, Lt Headedness, Other Objective-Cardiology Exam Last Set of Vital Signs Vital Signs 03/20/17 03/22/17 03/22/17 06:26 04:00 07:22 Temp 97.2 Pulse 63 Resp 20 B/P (MAP) 99/63 (75) Pulse Ox 95 O2 Delivery Nasal Cannula O2 Flow Rate 3.00 FiO2 40 Capillary Refill : Less Than 3 Seconds I&O Intake and Output 03/22/17 00:00 Intake Total 1250 ml Output Total 2175 ml Balance -925 ml Intake Oral 150 ml IV Total 1100 ml Output Urine Total 2175 ml General: Alert, Oriented X3, Cooperative HEENT: Atraumatic, PERRLA Lungs: Other (kaz rhonchi and wheezing ) Heart: Normal S1, Normal S2 Abdomen: Normal Bowel Sounds Extremities: No Clubbing, No Cyanosis Skin: No Rashes Neuro: Other (previous stroke) Psych/Mental Status: Mental Status NL Results Lab Laboratory Tests 03/22/17 05:55 A/P-Cardiology Admission Diagnosis Acute respiratory failure Non-ST elevation myocardial infarction Congestive heart failure, acute left ventricular systolic dysfunction, ischemic cardiomyopathy Hypotensive shock Assessment/Plan Acute respiratory failure, extubated, improving, still having significant wheezing and rhonchi Elevated troponin level, questionable worsening of her coronary artery disease non-ST elevation myocardial infarction, had a cardiac catheterization done in 2012 which showed moderate disease nonobstructive disease. Discussed the possible to of cardiac catheterization again with patient and daughter and they requested conservative management, cannot tolerate aspirin in addition to Eliquis due to history of intracranial bleed, possible cath with radial approach in the future Congestive heart failure, acute left ventricular systolic dysfunction, probably ischemic in nature. 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 Patient has been maintained on Eliquis due to her DVT and atrial fibrillation and tolerating it well. History of Sick sinus syndrome, paroxysmal atrial fibrillation, history of permanent pacemaker. Patient was maintained on Coumadin, it was discontinued after the hemorrhage. She was placed on Eliquis on January 16, 2014 due to deep venous thrombosis and A. fib and appeared to be tolerating it well. Patient is seeing Dr. Morales as an outpatient. Continue to monitor. [id number] Score is 4, yearly risk of stroke without oral anticoagulation is 8.5 percent. HAS-BLED score is 4, high risk, estimated Rate of major bleeding within one year on oral anticoagulation is 4.9-19.6 percent. Patient is maintained on oral anticoagulation due to atrial fibrillation and deep venous thrombosis. Risk and benefits of oral anticoagulation for patient was discussed with her and her daughter in great detail. They agree to continue oral anticoagulation, continue to monitor Peripheral vascular disease history of occlusion of the SFA status post endarterectomy. Monitored by heart and vascular care Hyperlipidemia, continue to monitor lipids Hypothyroidism, Followed and managed by primary care physician Questionable history of seizure, maintained on Keppra, Seen by Dr Maxwell History of Tobaccoism, patient has stopped smoking after her stroke, encouraged to continue with smoking cessation. Carotid stenosis history of left carotid endarterectomy, followed by heart and vascular. Continue to monitor. History of GI bleed, tolerating Eliquis at this time. Will follow closely. History of Snell's palsy Clinical Quality Measures DVT/VTE Risk/Contraindication: Risk Factor Score Per Nursin RFS Level Per Nursing on Admit: 4+=Very High DANO MESSINA MD Mar 22, 2017 10:02
[2017-03-22 11:56] VITALS: BP 119/56
--- NOTE | 2017-03-22 12:11 | Physical Therapy Daily Note ---
PT Daily Note-Current Subjective Pt. in bed on arrival, states she doesnt know where she lives or how she move around previously. Dtr. enters mid Rx and states pt. has been [facility] and [facility]. "walks indep to from meals" Pain Numeric Pain Scale: 0-No Pain Location: No Pain Reported Mental Status Patient Orientation: Confused, Eyes Open Attachments: Oxygen, IV Transfers Functional [place] Measure 0=Not Assessed/NA 4=Minimal Assistance 1=Total Assistance 5=Supervision or Setup 2=Maximal Assistance 6=Modified [place] 3=Moderate Assistance 7=Complete IndependenceIRFPAI Quality Coding Scale 6 Independent with activity with or without an assistive device 5 Patient requires set up or clean up by helper. Patient completes activity by themselves 4 Supervision or touching assist (CGA). [place] provide cues , steadying assist 3 The helper provides less than half the effort to complete the activity 2 The helper provides more than half the effort to complete the activity 1 Dependent. The helper does all the effort to complete an activity 7 Patient refused to complete or attempt activity 9 The patient did not perform the activity before the current illness or injury 88 Not attempted due to Medical conditions or safety concerns Transfers (B, C, W/C) (FIM): 5 Scootin Rollin Supine to/from Sit: 5 Sit to/from Stand: 5 Weight Bearing Right Lower Extremity: Right Weight Bearing/Tolerated Left Lower Extremity: Left Weight Bearing/Tolerated Gait Training Gait (FIM): 1 Distance (FIM): 1=up to 49 ft (10ft) Gait Level of Assist: 4 Gait Persons Needed: 1 Gait Assistive Device: FWW Exercises Supine Ex: Bridging, Ankle pumps, Quad Set, Rolling, Glut sets, Heel Slides, Short Arc Quads, Scooting, Straight leg raise, Hip abd/add Supine Reps: 15 Assessment Current Status: Good Progress PT Short Term Goals Short Term Goals Time Frame: Mar 27, 2017 Transfers (B,C,W/C) (FIM): 4 Gait (FIM): 1 Distance (FIM): 1=up to 49 ft Gait Distance Comment: 30' Gait Level of Assist: 4 Gait Assistive Device: FWW PT Senior Living Goals Senior Living Goals PT Senior Living Goals Time Frame: Apr 03, 2017 Transfers (B,C,W/C) (FIM): 5 Gait (FIM): 5 Gait distance (FIM): 3=150 ft Distance: 150' Gait Level of Assist: 5 Gait Assistive Device: FWW PT Plan Treatment/Plan Treatment Plan: Continue Plan of Care Treatment Plan: Bed Mobility, Functional Activity Garth, Functional Strength, Gait, Safety, Therapeutic Exercise, Transfers Treatment Duration: Apr 03, 2017 Frequency: 6 times per week Estimated Hrs Per Day: .5 hour per day Patient and/or Family Agrees t: Yes Safety Risks/Education Patient Education: Gait Training, Transfer Techniques, Correct Positioning, Disease Process, Safety Issues Teaching Recipient: Patient Teaching Methods: Demonstration, Discussion Response to Teaching: Verbalize Understanding, Return Demonstration, Reinforcement Needed Time/GCodes Time In: 1022 Time Out: 1045 Total Billed Treatment Time: 23 Total Billed Treatment 1,FA13,EX10 G Codes Necessary: ELMER Velasquez ENGINEERING AND DEVELOPMENT DIRECTOR Mar 22, 2017 12:11
--- NOTE | 2017-03-22 12:27 | Progress Note-Hospitalist ---
Subjective HPI/CC On Admission Date Seen by Provider: Mar 22, 2017 Time Seen by Provider: 10:30 Subjective/Events-last exam Pt reports feeling well. She is confused at baseline per daughter and is currently at her normal level of mentation. She denies any concerns. States she is eating well, no problems with BM. Objective Exam Vital Signs Vital Sign - Last 12Hours 03/19/17 03/19/17 03/19/17 03/19/17 04:00 04:30 05:00 08:00 Temp 97.9 Pulse 60 Resp 14 B/P (MAP) 83/40 (54) Pulse Ox 99 O2 Delivery Mechanical Ventilator O2 Flow Rate 50.00 FiO2 70 Capillary Refill : Less Than 3 Seconds General Appearance: No Apparent Distress, Chronically ill Neck: Non Tender, Supple Respiratory: No Accessory Muscle Use, No Respiratory Distress, Wheezing ( expiratory) Cardiovascular: Regular Rate, Rhythm, No Murmur Gastrointestinal: Normal Bowel Sounds, Non Tender, Soft Extremity: Non Tender, No Calf Tenderness, No Pedal Edema Neurologic/Psychiatric: Alert, Other (oriented to self and place) Results/Procedures Lab Laboratory Tests 03/22/17 05:55 Assessment/Plan Assessment and Plan Assess & Plan/Chief Complaint Acute respiratory failure- now extubated, on 3 Lpm, continue steroid taper, pulm consulted- appreciate recs cardiogenic shock- resolved HTN- Now on Metoprolol Elevated troponin level, questionable worsening of her coronary artery disease non-ST elevation myocardial infarction, had a cardiac catheterization done in 2012 which showed moderate disease nonobstructive disease. 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 Patient has been maintained on Eliquis due to her DVT and atrial fibrillation and tolerating it well. History of Sick sinus syndrome, paroxysmal atrial fibrillation, history of permanent pacemaker. Patient was maintained on Coumadin, it was discontinued after the hemorrhage. She was placed on Eliquis on January 16, 2014 due to deep venous thrombosis and A. fib and appeared to be tolerating it well. Patient is seeing Dr. Morales as an outpatient. she is on Eliquis Peripheral vascular disease history of occlusion of the SFA status post endarterectomy Hyperlipidemia, continue Lipitor Hypothyroidism- Synthroid Questionable history of seizure, maintained on Keppra, Seen by Dr Maxwell History of Tobaccoism, patient has stopped smoking after her stroke, encouraged to continue with smoking cessation. Carotid stenosis history of left carotid endarterectomy, followed by heart and vascular. Continue to monitor. History of GI bleed, tolerating Eliquis at this time. Continue PPI SACHA DESIR MD Mar 22, 2017 12:27
[2017-03-22 16:00] VITALS: BP 111/70
[2017-03-22 19:40] VITALS: BP 133/72
[2017-03-22] MEDS: ATORVASTATIN 40 MG (LIPITOR) TABLET PO SCH (20:01)
[2017-03-22] MEDS: meTOprolol TARTRATE 25 MG (LOPRESSOR) TABLET PO SCH (20:01)
[2017-03-23] VITALS: BP 137/67
[2017-03-23] MEDS: NS IV 1000 ML 1,000 ML IV SCH (00:05)
[2017-03-23] MEDS: RT-ALBUTEROL/IPRATROPIUM 3 ML (DUONEB) VIAL INH SCH ×3 (02:53→10:14)
[2017-03-23 04:05] VITALS: BP 140/70
[2017-03-23] MEDS: LEVOTHYROXINE 50 MCG (LEVOTHROID) TAB PO SCH (05:42)
[2017-03-23] MEDS: PANTOPRAZOLE 40 MG/10 ML (PROTONIX) VIAL IV SCH ×2 (05:42→08:38)
[2017-03-23] MEDS: inSUlin ASPART (NovoLOG) 1 UNIT/0.01 ML (CHARGE PER UNIT) SC SCH (06:16)
--- NOTE | 2017-03-23 07:03 | Pulmonary Progress Note ---
Subjective Time Seen by Provider: 07:02 Subjective/Events-last exam No complications noted. Exam Exam Vital Signs Date Time Temp Pulse Resp B/P (MAP) Pulse Ox O2 Delivery O2 Flow Rate FiO2 03/23/17 06:23 93 Nasal Cannula 4.00 03/23/17 04:05 97.3 61 19 140/70 (93) 96 Nasal Cannula 3.00 03/23/17 02:55 94 Nasal Cannula 4.00 03/23/17 00:00 98.0 62 18 137/67 (90) 95 Nasal Cannula 3.00 03/22/17 22:01 Nasal Cannula 3.00 03/22/17 21:26 95 Nasal Cannula 4.00 03/22/17 19:40 97.3 62 20 133/72 (92) 92 Nasal Cannula 3.00 03/22/17 18:34 94 Nasal Cannula 4.00 03/22/17 16:00 96.6 60 16 111/70 (84) 95 Nasal Cannula 3.00 03/22/17 14:53 86 Nasal Cannula 3.00 03/22/17 11:56 96.1 62 20 119/56 (77) 90 Nasal Cannula 3.00 03/22/17 11:13 90 Nasal Cannula 03/22/17 08:00 95.5 60 20 124/68 (86) 95 Nasal Cannula 3.00 03/22/17 07:22 95 Nasal Cannula 3.00 I & O 03/23/17 07:00 Intake Total 2300 ml Output Total 1875 ml Balance 425 ml General Appearance: No Apparent Distress, Chronically ill HEENT: Other (left facial droop) Neck: Non Tender, Supple Respiratory: No Accessory Muscle Use, No Respiratory Distress, Wheezing ( expiratory) Cardiovascular: Regular Rate, Rhythm, No Murmur Capillary Refill: Less Than 3 Seconds Gastrointestinal: normal bowel sounds, non tender, soft Extremity: Non Tender, No Calf Tenderness, No Pedal Edema Neurologic/Psychiatric: Alert, Other (oriented to self and place) Skin: Pallor Lymphatic: No Adenopathy Results Lab Laboratory Tests 03/22/17 05:55 Assessment/Plan Assessment/Plan Acute respiratory failure - improving -Pt doing well off ventilator -prednisone taper -SVNs. NSTEMI with CHF EF 40% - cardiology Hx of ICH Obesity with hx of MALLY PT is doing much better. 232 Clinical Quality Measures DVT/VTE Risk/Contraindication: Risk Factor Score Per Nursin RFS Level Per Nursing on Admit: 4+=Very High ABEL LEONARDO DO Mar 23, 2017 07:03
[2017-03-23 08:00] VITALS: BP 140/63
[2017-03-23] MEDS: MAGNESIUM OXIDE (MAG-OX)400 MG TAB PO SCH (08:35)
[2017-03-23] MEDS: APIXABAN 5 MG (ELIQUIS) TABLET PO SCH (08:36)
[2017-03-23] MEDS: meTOprolol TARTRATE 25 MG (LOPRESSOR) TABLET PO SCH (08:36)
[2017-03-23] MEDS: SERTRALINE 50 MG (ZOLOFT) TABLET PO SCH (08:37)
[2017-03-23] MEDS: SOTALOL 80 MG (BETAPACE) TAB PO SCH (08:37)
[2017-03-23] MEDS: predniSONE 10 MG TAB PO SCH (08:38)
[2017-03-23] MEDS ORDERED: METO-333 PO (08:57)
[2017-03-23] MEDS ORDERED: PRED10TA22 PO (08:57)
--- NOTE | 2017-03-23 09:16 | Physical Therapy Daily Note ---
PT Daily Note-Current Subjective Patient is in very good spirits and agrees to PT. Pain Numeric Pain Scale: 0-No Pain Location: No Pain Reported Mental Status Patient Orientation: Confused Attachments: Oxygen (4L NC continuous), Duncan Catheter, IV Transfers Functional Gordo Measure 0=Not Assessed/NA 4=Minimal Assistance 1=Total Assistance 5=Supervision or Setup 2=Maximal Assistance 6=Modified G[place] 3=Moderate Assistance 7=Complete IndependenceIRFPAI Quality Coding Scale 6 Independent with activity with or without an assistive device 5 Patient requires set up or clean up by helper. Patient completes activity by themselves 4 Supervision or touching assist (CGA). Alden provide cues , steadying assist 3 The helper provides less than half the effort to complete the activity 2 The helper provides more than half the effort to complete the activity 1 Dependent. The helper does all the effort to complete an activity 7 Patient refused to complete or attempt activity 9 The patient did not perform the activity before the current illness or injury 88 Not attempted due to Medical conditions or safety concerns Transfers (B, C, W/C) (FIM): 5 Scootin Rollin Supine to/from Sit: 5 Sit to/from Stand: 5 Weight Bearing Right Lower Extremity: Right Weight Bearing/Tolerated Left Lower Extremity: Left Weight Bearing/Tolerated Gait Training Gait (FIM): 5 Distance (FIM): 3=150 ft Distance: 500' Gait Level of Assist: 5 Gait Assistive Device: FWW skilled verbal instruction for body placement in FWW. Assist for O2 tank, IV only Exercises Seated Therapy Exercises: Ankle pumps, Long arc quads, Hip flexion Seated Reps: 15 (2 sets ) Assessment Patient tolerated treatment well and is up in recliner with needs met. PT consult with Dr. Larose on POC. From a PT standpoint, patient would benefit from home health therapy at [place] upon dismissal. PT Short Term Goals Short Term Goals Time Frame: Mar 27, 2017 Transfers (B,C,W/C) (FIM): 4 Gait (FIM): 1 Distance (FIM): 1=up to 49 ft Gait Distance Comment: 30' Gait Level of Assist: 4 Gait Assistive Device: FWW PT Odd Ticket Clerk Goals Odd Ticket Clerk Goals PT Alf Goals Time Frame: Apr 03, 2017 Transfers (B,C,W/C) (FIM): 5 Gait (FIM): 5 Gait distance (FIM): 3=150 ft Distance: 150' Gait Level of Assist: 5 Gait Assistive Device: FWW PT Plan Treatment/Plan Treatment Plan: Continue Plan of Care Treatment Plan: Bed Mobility, Functional Activity Garth, Functional Strength, Gait, Safety, Therapeutic Exercise, Transfers Treatment Duration: Apr 03, 2017 Frequency: 6 times per week Estimated Hrs Per Day: .5 hour per day Patient and/or Family Agrees t: Yes Discharge Recommendations Therapy D/C Recommendations: Assisted Living, Physical Therapy Home Care Time/GCodes Time In: 845 Time Out: 908 Total Billed Treatment Time: 23 Total Billed Treatment 1 visit GT 15 min EX 8 min HELEN CRAWFORD PT Mar 23, 2017 09:16
--- NOTE | 2017-03-23 09:49 | Discharge Summary-Hospitalist ---
Diagnosis/Chief Complaint Date of Admission Mar 19, 2017 at 04:34 Date of Discharge Discharge Date: Mar 23, 2017 Admission Diagnosis Assessment: Acute respiratory failure requiring intubation at [facility] [place] Bilateral pneumonia Elevated troponin with elevated BNP consulting Cardiology COPD AF Discharge Diagnosis Acute respiratory failure Discharge Summary Consultations Cardiology- Dr Yang Puljeannette- Dr Vincent Discharge Physical Examination Allergies: Coded Allergies: Codeine (Verified Allergy, Unknown, 05/20/11) Gemfibrozil (Unverified Allergy, Unknown, 05/20/11) Penicillins (Verified Allergy, Unknown, 05/20/11) Tetracycline (Verified Allergy, Unknown, 05/20/11) bupropion (Verified Allergy, Unknown, 05/20/11) epinephrine (Unverified Allergy, Unknown, 05/20/11) fexofenadine (Unverified Allergy, Unknown, 05/20/11) meperidine HCl (Unverified Allergy, Unknown, 05/20/11) niacin (Verified Allergy, Unknown, 05/20/11) ondansetron (Unverified Allergy, Unknown, 05/20/11) propoxyphene (Verified Allergy, Unknown, 05/20/11) propoxyphene napsylate (Unverified Allergy, Unknown, 05/20/11) Vitals & I&Os Vital Signs Date Time Temp Pulse Resp B/P (MAP) Pulse Ox O2 Delivery O2 Flow Rate FiO2 03/23/17 08:00 98.0 66 20 140/63 (88) 96 Nasal Cannula 3.00 03/20/17 06:26 40 Hospital Course Pt is an 81yoCF who was admitted from OSH for acute respiratory failure due to acute heart failure from NSTEMI and cardiogenic shock. She was initially intubated but was quickly liberated on 03/19. Cardiology was consulted and discussions were had with patient and her family in regards to her cardiac standpoint and they elective conservative management with medicals only at this time. Cardiology managed this aspect given her very complex history in regards to a previous ICH, GI bleed, DVT, and a-fib. She was continued on anticoagulation after discussion was had by Dr. Dunn with family about risks and benefits of anticoagulation. She improved quickly and on discharge was able to ambulate 500ft with minimal assistance. She was anxious for DC today. She was DC back to her nursing facility. Labs (last 24 hrs) Laboratory Tests 03/22/17 11:44: Glucometer 151H 03/22/17 15:42: Glucometer 206H 03/22/17 20:41: Glucometer 296H 03/23/17 06:01: Glucometer 142H Microbiology 03/19/17 Blood Culture - Preliminary, Resulted No growth 03/19/17 Gram Stain - Final, Complete 03/19/17 Sputum Culture - Final, Complete Usual/normal cristal isolated. Pending Labs Laboratory Tests 03/23/17 06:01: Glucometer 142 Discharge Home Medications: Active Scripts Active Prednisone 10 Mg Tab.ds.pk 10 Mg PO DAILY Take 4 tabs(40mg)daily,decrease by 1 tab(10MG)daily. Metoprolol Tartrate 25 Mg Tablet 12.5 Mg PO BID Reported Alprazolam 0.25 Mg Tablet 0.25 Mg PO BID PRN Hydrocortisone 453.6 Gm Cream..g. TOP BID PRN Sotalol (Sotalol HCl) 80 Mg Tablet 80 Mg PO BID Sertraline HCl 50 Mg Tablet 25 Mg PO DAILY TAKES 1/2 (50MG) TABLET Protonix (Pantoprazole Sodium) 40 Mg Tablet.dr 40 Mg PO DAILY Magnesium Oxide 400 Mg Tablet 100 Mg PO DAILY TAKES 1/4 (400MG) TABLET Levothyroxine Sodium 50 Mcg Tablet 50 Mcg PO DAILY Eliquis (Apixaban) 5 Mg Tablet 5 Mg PO BID Calcium Gummies (Calcium Phosphate Trib/Vit D3) 1 Each Tab.chew 500 Mg PO DAILY Atorvastatin Calcium 40 Mg Tablet 40 Mg PO HS Fish Oil 1,000 mg Capsule (Mildred 3 Polyunsat Fatty Acids) 1,000 Mg Cap 1,000 Mg PO BID Instructions to patient/family Please see electronic discharge instructions given to patient. Clinical Quality Measures DVT/VTE Risk/Contraindication: Risk Factor Score Per Nursin RFS Level Per Nursing on Admit: 4+=Very High Copy Copies To 1: DANO DUNN MD; BARRY ANGELO KATELYN M MD Mar 23, 2017 09:49
[2017-03-23 12:20] VITALS: BP 140/63
[2017-03-24] MEDS ORDERED: PANTOPRAZOLE 40 MG (PROTONIX) TAB PO SCH (07:00)
== END 2017-03-23 12:30 | DRG 208 ==
LOC: ICU 04:34 → 4TH 03-21 13:20
PROVIDERS: ADMIT Internal Medicine; ATTEND Internal Medicine
PROC: 5A1945Z Respiratory Ventilation, 24-96 Consecutive Hours (ICD-10-PCS; principal; 2017-03-19)
DX: J96.00 Acute respiratory failure, unspecified whether with hypoxia or hypercapnia (principal); J18.9 Pneumonia, unspecified organism; J44.0 Chronic obstructive pulmonary disease with (acute) lower respiratory infection; I21.4 Non-ST elevation (NSTEMI) myocardial infarction; R57.0 Cardiogenic shock; I50.21 Acute systolic (congestive) heart failure; I11.0 Hypertensive heart disease with heart failure; K21.9 Gastro-esophageal reflux disease without esophagitis; Z66 Do not resuscitate; E78.00 Pure hypercholesterolemia, unspecified; I73.9 Peripheral vascular disease, unspecified; Z95.0 Presence of cardiac pacemaker; Z87.442 Personal history of urinary calculi; I95.9 Hypotension, unspecified; G47.33 Obstructive sleep apnea (adult) (pediatric); E66.01 Morbid (severe) obesity due to excess calories; Z68.33 Body mass index [BMI] 33.0-33.9, adult; Z86.73 Personal history of transient ischemic attack (TIA), and cerebral infarction without residual deficits; Z86.718 Personal history of other venous thrombosis and embolism; I48.0 Paroxysmal atrial fibrillation; E78.5 Hyperlipidemia, unspecified; E03.9 Hypothyroidism, unspecified; G40.909 Epilepsy, unspecified, not intractable, without status epilepticus; F17.210 Nicotine dependence, cigarettes, uncomplicated; I25.5 Ischemic cardiomyopathy; I65.23 Occlusion and stenosis of bilateral carotid arteries; E87.8 Other disorders of electrolyte and fluid balance, not elsewhere classified; E83.42 Hypomagnesemia; E87.6 Hypokalemia
CPT/HCPCS: 36415; 36569; 70450; 70460; 71010; 71275; 76937; 80048; 81000; 82040; 82805; 82962; 83605; 83735; 83880; 84100; 84132; 84443; 84484; 85025; 85610; 87040; 87070; 87205; 93005; 93306; 94002; 94640; 94760; 94799